=== PATIENT | female | born 1970 | race Caucasian/White ===

== ENCOUNTER 2024-11-19 19:30 | Inpatient (IN) | payer MEDICAID ==
[~2024-11-19] VITALS: Ht 154.9 cm; Wt 144.1 kg
[~2024-11-19 19:30] MED LIST: AEC81 PO; ALBU18HF7 IH; ALBU2.5V2 NEB; ATOR40TA69 PO; AZEL137S11 NS; BACI30OI6 TP; BENZ200C53 PO; CELE-146 PO; DOXY-466 PO; ERGO800010 PO; FAMO40TA7 PO; FLUT16H NS; FURO40TA5 PO; GABA-529 PO; GUAI600T50 PO; HYD50 PO; HYDR-4060 PO; HYDR25SU11 PR; INSU100I15 SQ; INSU3INS3 SQ; IPRA4AER IH; LISI2.5T13 PO; LORA10TA7 PO; METF-910 PO; METH4TAB3 PO; METO25 PO; MONT-46 PO; TERB250T89 PO; UMEC1DIS IH; ZOLP5TAB16 PO
--- NOTE | 2024-11-19 19:57 | ERN ---
ED Note History of Present Illness Stated Complaint: GBW, FATIGUE SUDDEN ONSET Chief Complaint: Weakness Time Seen by MD: 19:44 Dictation: IS A 54-YEAR-OLD FEMALE THAT IS STATES SHE WAS JUST DISCHARGED FROM [facility] YESTERDAY AFTER BEING HERE FOR SEVERAL DAYS. SHE STATES SHE HAD HAD A GOOD DAY YESTERDAY TODAY SHE GOT UP AND THIS AFTERNOON SHE WAS GOING INTO HAVE DINNER WITH HER FAMILY AT A [facility] [employer]. SHE STATES WHILE SHE WAS WALKING IN SHE FELT A SUDDEN SENSATION OF PRESSURE AROUND HER CHEST AND NECK. SHE SAID SHE BECAME DIAPHORETIC SHE SAID IT LASTED 20-30 MINUTES. SHE SAID THAT IT DID NOT RADIATE SHE STATES THAT THERE WAS EMS THERE HAVING DINNER AND THEY CHECKED ON HER AND DECIDED THAT IT WAS BEST TO BRING HER TO THE HOSPITAL. SHE STATES IT THIS TIME SHE IS NOT HAVING ANY CHEST PAIN PRESSURE OR SHORTNESS A BREATH. SHE DOES NOT HAVE A HISTORY OF STAGE 4 KIDNEY DISEASE HYPERTENSION DIABETES AND TOBACCO ABUSE. Allergies: Coded Allergies: cephalexin (Unverified Allergy, Unknown, 11/13/24) Home Meds Active Scripts Insulin Glargine,Hum.rec.anlog (Lantus Solostar) 100 Unit/Ml (3 Ml) Insuln.pen, 40 UNIT SQ HS for 30 Days, #5 ML 1 Refill Prov:DIANA SHOOK MD 11/18/24 Furosemide (Furosemide) 40 Mg Tablet, 1 TAB PO BID for 30 Days, #60 TAB 1 Refill Prov:DIANA SHOOK MD 11/17/24 Ipratropium/Albuterol Sulfate (Combivent Respimat Inhal [place]) 20 Mcg-100 Mcg/Actuation Aer.w.adap, 2 PUFF IH TID PRN for SHORTNESS OF BREATH/WHEEZING, #4 GM 1 Refill Prov:DIANA SHOOK MD 11/17/24 Methylprednisolone (Medrol) 4 Mg Tab.ds.pk, 1 TAB PO AD for 6 Days, #21 TAB 0 Refills 6 on day 1 then reduce by one tablet daily until gone Prov:DIANA SHOOK MD 11/17/24 Lisinopril (Lisinopril) 2.5 Mg Tablet, 1 TAB PO DAILY for 30 Days, #30 TAB 1 Refill Prov:DIANA SHOOK MD 11/17/24 Doxycycline Monohydrate (Doxycycline Monohydrate) 100 Mg Capsule, 1 CAP PO BID for 7 Days, #14 CAP 0 Refills Prov:DIANA SHOOK MD 11/17/24 Montelukast Sodium (Singulair 10Mg) 10 Mg Tab, 10 MG PO DAILY for 30 Days, #30 TAB 1 Refill Prov:DIANA SHOOK MD 11/17/24 Metoprolol Tartrate (Lopressor) 25 Mg Tab, 12.5 MG PO BID for 30 Days, #30 TAB 1 Refill Prov:DIANA SHOOK MD 11/17/24 Hydrocortisone Acetate (Anucort-Hc) 25 Mg Supp.rect, 1 SUPP NE DAILY PRN for HEMORRHOIDS for 7 Days, #7 EA 1 Refill Prov:DIANA SHOOK MD 11/17/24 Bacitracin (Bacitracin) 500 Unit/Gram Oint...g., 0 GM TP BID for 14 Days, #1 G 1 Refill Apply topical to affected area Prov:DIANA SHOOK MD 11/17/24 Atorvastatin Calcium (LIPITOR) 40 Mg Tablet, 40 MG PO HS for 30 Days, #30 TAB 1 Refill Prov:DIANA SHOOK MD 11/17/24 Aspirin (ASPIRIN 81 MG ECTAB) 81 Mg Ectab, 81 MG PO DAILY for 30 Days, #30 TAB.EC 1 Refill Prov:DIANA SHOOK MD 11/17/24 Reported Medications Fluticasone Propionate (Flonase Nasal [place]) 50 Mcg/Actuation [place], 2 SPRAY NS DAILY, #16 GM 0 Refills 11/14/24 Hydroxyzine HCl (Atarax) 50 Mg Tab, 1 CAP PO TID for anxiety for 30 Days, #90 CAP 0 Refills 11/14/24 Famotidine (Famotidine) 40 Mg Tablet, 1 TAB PO DAILY for 30 Days, #30 TAB 0 Refills 11/14/24 Albuterol Sulfate (Albuterol Sulfate) 2.5 Mg/3 Ml (0.083 %) Vial.neb, 1 VIAL NEB Q4HPRN PRN for wheezing, #150 ML 0 Refills 11/14/24 Zolpidem Tartrate (Zolpidem Tartrate) 5 Mg Tablet, 1 TAB PO HSPRN PRN for sleep for 30 Days, #30 TAB 0 Refills 11/14/24 Ergocalciferol (Vitamin D2) (Ergocalciferol) 200 Mcg/Ml (8000 Unit/Ml) Drops, 1.25 MG PO QWEEK, DROP 11/14/24 Terbinafine HCl (Terbinafine HCl) 250 Mg Tablet, 1 TAB PO DAILY for 30 Days, #30 TAB 0 Refills 11/14/24 Umeclidinium Brm/Vilanterol Tr (Anoro Ellipta 62.5-25 Mcg INH) 62.5 Mcg-25 Mcg/Actuation Disk.w.dev, 1 PUFF IH DAILY for 30 Days, #1 EACH 0 Refills 11/14/24 Insulin Lispro (Humalog) 100 Unit/Ml Insuln.pen, 0 SQ TID PRN for SLIDING SCALE COVERAGE, SYRINGE 11/14/24 Gabapentin (Gabapentin) 100 Mg Capsule, 1 CAP PO TID for 30 Days, #90 CAP 0 Refills 11/14/24 Atorvastatin Calcium (LIPITOR) 40 Mg Tablet, 1 TAB PO DAILY for 30 Days, #30 TAB 0 Refills 11/14/24 Metformin HCl (Metformin HCl ER) 500 Mg Tab.er.24h, 2 TAB PO DAILY for 30 Days, #120 TAB 0 Refills 11/14/24 Loratadine (Loratadine) 10 Mg Tablet, 1 TAB PO DAILY for allergy symptoms for 30 Days, #30 TAB 0 Refills 11/14/24 Albuterol Sulfate (Ventolin Hfa) 90 Mcg Hfa.aer.ad, 2 PUFF IH E0ALYPV PRN for wheezing for 30 Days, #18 GM 0 Refills 11/14/24 Hydrocodone/Acetaminophen (Hydrocodon-Acetaminophen 5-325) 5 Mg-325 Mg Tablet, 0.5 EACH PO HSPRN PRN for PAIN LEVEL 6 TO 10, TAB 11/14/24 Guaifenesin (Mucinex) 600 Mg Tablet.er, 1200 MG PO BID, TAB 11/14/24 Benzonatate (Benzonatate) 200 Mg Capsule, 2 CAP PO TIDP PRN for cough for 7 Days, #21 CAP 0 Refills 11/14/24 Azelastine HCl (Azelastine HCl) 137 Mcg (0.1 %) [place].pump, 1 SPRAY NS BID for 30 Days, #30 ML 0 Refills 11/14/24 Celecoxib (Celecoxib) 100 Mg Capsule, 1 CAP PO BID for 10 Days, #20 CAP 0 Refills 11/14/24 Discontinued Reported Medications Insulin Glargine,Hum.rec.anlog (Lantus Solostar) 100 Unit/Ml (3 Ml) Insuln.pen, 20 UNIT SQ HS for 30 Days, ML 0 Refills 11/14/24 Lisinopril (Lisinopril) 10 Mg Tablet, 1 TAB PO DAILY for 30 Days, #30 TAB 0 Refills 11/14/24 Spironolactone (Aldactone) 25 Mg Tablet, 1 TAB PO DAILY for 30 Days, #30 TAB 0 Refills 11/14/24 Prednisone (Prednisone) 20 Mg Tablet, 40 MG PO DAILY, TAB 11/14/24 Past Medical History Past Medical History: COPD, Diabetes-Type II, High Cholesterol, Hypertension Additional Past Medical Hx: SLEEP APNEA, MORBID OBESITY Surgical History: Other, Surgical History Other: LEFT SHOULDER Social History: Smokers History: Not Applicable RN Note Reviewed/Agreed w/PFSH: Yes Review of System Dictation CONSTITUTIONAL: NEGATIVE EXCEPT FOR HPI DIAPHORESIS HEAD/FACE: NEGATIVE EXCEPT FOR HPI EENT: NEGATIVE EXCEPT FOR HPI RESPIRATORY: NEGATIVE EXCEPT FOR HPI CHEST PRESSURE GASTROINTESTINAL/ABDOMINAL: NEGATIVE EXCEPT FOR HPI GENITOURINARY: NEGATIVE EXCEPT FOR HPI MUSCULOSKELETAL: NEGATIVE EXCEPT FOR HPI INTEGUMENTARY: NEGATIVE EXCEPT FOR HPI NEUROLOGICAL/PSYCH: NEGATIVE EXCEPT FOR HPI HEMATOLOGIC/LYMPHATIC: NEGATIVE EXCEPT FOR HPI ALL SYSTEMS NEGATIVE, EXCEPT NOTED ABOVE. 13 POINT REVIEW OF SYSTEMS ASSESSED AND ALL NEGATIVE EXCEPT FOR ABOVE. Initial Vital Sign VS Vital Signs Date Time Temp Pulse Resp B/P (MAP) Pulse Ox O2 Delivery O2 Flow Rate FiO2 11/19/24 19:31 97.9 103 17 125/77 98 Nonrebreathing Mask 10.0 11/19/24 20:10 21 Physical Exam Dictation VITAL SIGNS REVIEWED GENERAL APPEARANCE: ALERT, ORIENTED X 3, NO ACUTE DISTRESS, WELL DEVELOPED, NOURISHED. MORBID OBESITY NO PAIN HEAD AND FACE: NON-TRAUMATIC. EYES: PERRL, PINK CONJUNCTIVAS, EYELID NO TRAUMA, ANTERIOR CHAMBER WITH ARCUS SENILIS. EARS: PINNAS INTACT AND NO SIGNS OF TRAUMA OR ERYTHEMA EAR CANALS CLEAR AND NO DISCHARGE TM NO ERYTHEMA NOSE: NO DISCHARGE, NO BLEEDING. OROPHARYNX: MOUTH NORMAL, TONGUE PINK, PHARYNX CLEAR,NO ERYTHEMA, TONSILS NO EXUDATES, NO ABSCESSES NOTED, MUCOUS MEMBRANE MOIST NECK: SUPPLE, NON-TENDER, NO THYROMEGALY, NO MASSES, NO JVD, NO BRUITS BREAST:DEFERRED CHEST:NO TENDERNESS, NO CREPITUS, NO PARADOXICAL MOVEMENT, NO RETRACTIONS LUNGS:CLEAR, WELL-VENTILATED, SYMMETRIC, NO RALES, NO WHEEZING, NO RHONCHI, NO STRIDOR, GOOD BREATH SOUNDS BILATERALLY NO TACHYPNEA NO RETRACTIONS BILATERAL BREATH SOUNDS CLEAR, DIMINISHED IN THE BASES HEART: REGULAR RATE, REGULAR RHYTHM, NO MURMUR, NO GALLOPS VASCULAR: NO PERIPHERAL EDEMA, ABDOMEN: SOFT, POSITIVE BOWEL SOUNDS, NONDISTENDED, NO GUARDING, NONTENDER, NO REBOUND, NO MASSES NO HEPATOMEGALY, NO SPLENOMEGALY, NO BREWSTER'S SIGN, NO HERNIAS. RECTAL: DEFERRED GENITAL: DEFERRED NEUROLOGICAL: NORMAL SPEECH, MOTOR FUNCTION INTACT, SENSORY FUNCTION INTACT MUSCULOSKELETAL: NECK NONTENDER, FULL RANGE OF MOTION, BACK NONTENDER, FULL RANGE OF MOTION, EXTREMITIES: NONTENDER, FULL RANGE OF MOTION SKIN: COLOR PINK, DRY, NO TURGOR, NO RASH, NO LACERATIONS, NO ABRASIONS, NO CONTUSIONS. LYMPHATIC: DEFERRED Results (Laboratory/Radiology) Laboratory/Radiology Laboratory Tests Test 11/19/24 20:08 White Blood Count 14.6 K/uL (4.8-10.8) H Red Blood Count 5.53 MIL/uL (4.00-5.50) H Hemoglobin 17.6 g/dL (12.0-16.0) H Hematocrit 52.0 % (36-48) H Mean Corpuscular Volume 94.0 fL (79-99) Mean Corpuscular Hemoglobin 31.8 pg (27.0-33.0) Mean Corpuscular Hemoglobin Concent 33.8 g/dL (32.0-36.0) Red Cell Distribution Width 13.2 % (11.0-15.5) Platelet Count 328 K/uL (130-400) Mean Platelet Volume 10.3 fL (7.5-10.5) Immature Granulocyte % (Auto) 0.5 % (0-1) Neutrophils (%) (Auto) 79.1 % (40.0-77.0) H Lymphocytes (%) (Auto) 13.4 % (21.0-51.0) L Monocytes (%) (Auto) 6.4 % (3.0-13.0) Eosinophils (%) (Auto) 0.3 % (0.0-8.0) Basophils (%) (Auto) 0.3 % (0.0-5.0) Neutrophils # (Auto) 11.5 K/uL (1.8-7.7) H Lymphocytes # (Auto) 2.0 K/uL (1.0-4.8) Monocytes # (Auto) 0.9 K/uL (0.1-1.0) Eosinophils # (Auto) 0.04 K/uL (0.00-0.70) Basophils # (Auto) 0.04 K/uL (0.00-0.20) Absolute Immature Granulocyte (auto 0.07 K/uL (0-1) Nucleated Red Blood Cells 0.0 % (0.0-0.19) Sodium Level 139 mmol/L (136-145) Potassium Level 4.4 mmol/L (3.5-5.1) Chloride Level 101 mmol/L (101-111) Carbon Dioxide Level 27 mmol/L (21-32) Blood Urea Nitrogen 43 mg/dL (7-18) H Creatinine 1.5 mg/dL (0.5-1.0) H Glomerular Filtration Rate Calc 41 mL/min (>90) Random Glucose 246 mg/dL (70-105) H Lactic Acid Level 3.0 mmol/L (0.8-2.5) H Total Calcium 8.6 mg/dL (8.5-10.1) Magnesium Level 1.30 mg/dL (1.80-2.40) L Troponin I High Sensitivity 4 ng/L (4-50) B-Type Natriuretic Peptide 6 pg/mL (0-100) 2035/LACTIC ACID 3.0. PATIENT'S BLOOD PRESSURE IS 93/60. FLUID RESUSCITATION AND LEVAQUIN WE WILL BE INITIATED. CHEST X-RAY REVEALS RESIDUAL PNEUMONIA BILATERAL LOWER LOBES. ANTICIPATE ADMISSION IN THE HOSPITAL. PATIENT WILL BE MONITORED CLOSELY FOR HEMODYNAMIC STABILITY AND O2 SATURATIONS. SEX: F AGE: 54 LOCATION: [facility] ORDER 53 STATUS: REG ER REPORT#: [id number] SERVICE 50 REASON: CHEST PAIN/SOB ORDERING PHYSICIAN: LESLEY MAY NP PROCEDURE: CXR1VW - CHEST 1VW EXAM: CR Chest, 2 View. CLINICAL HISTORY: CHEST PAIN/SOB COMPARISON: None provided. FINDINGS: LUNGS: Mild bibasilar airspace disease may reflect atelectasis. PLEURAL SPACES: No pleural effusion or pneumothorax. MEDIASTINUM: The cardiomediastinal silhouette is within normal limits. BONES: No aggressive appearing osseous lesion seen. IMPRESSION: No acute cardiopulmonary pathology is evident. /[facility] Labs Reviewed?: Yes EKG Comment: TACHYCARDIA/HEART RATE 102/AXIS NORMAL/NONSPECIFIC CHRONIC CHANGES ED Course ED Course Orders Procedure Category Date Status Time B-Type Natriuretic LAB 11/19/24 Complete Peptide 19:51 Cbc With Differential LAB 11/19/24 Complete 19:51 Chest 1vw RAD 11/19/24 Resulted 19:51 12 Lead Ekg Tracing- EKG 11/19/24 Logged Technical 19:51 Magnesium LAB 11/19/24 Complete 19:51 Troponin I High LAB 11/19/24 Complete Sensitivity 19:51 Basic Metabolic Panel LAB 11/19/24 Complete 19:51 Aspirin 325mg Tab PHA 11/19/24 In Process (Aspirin 325mg Tab) 20:00 Blood Cult LEON 11/19/24 In Process 20:25 Lactic Acid LAB 11/19/24 Complete 20:25 Urinalysis Profile LAB 11/19/24 Logged 20:25 0.9%Nacl 1000ml (Ns PHA 11/19/24 In Process 1000ml) 20:30 Levofloxacin 750 PHA 11/19/24 Complete Mg/D5w 150 Ml 21:00 0.9%Nacl 1000ml (Ns PHA 11/19/24 Complete 1000ml) 21:00 Magnesium 2gm Premix PHA 11/19/24 Complete 50ml (Magnesium 2gm 21:30 Albuterol 0.083% PHA 11/19/24 Complete 2.5mg/3ml (Proventil 21:30 Edm Admit Bridge Order ADM 11/19/24 Transmitted 21:51 Current Medications Medications (Trade) Dose Ordered Sig/Brodie Route PRN Reason Start Time Stop Time Status Last Admin Dose Admin Albuterol Sulfate (Proventil 0.083% 2.5mg/3ml) 2.5MG ONCE ONCE IH 11/19/24 21:30 11/19/24 21:31 DC 11/19/24 21:51 Aspirin (Aspirin 325mg Tab) 325 mg ONCE PO 11/19/24 20:00 11/19/24 23:59 11/19/24 20:16 Levofloxacin/ Dextrose (LEvaquIN 750 MG/ D5W 150 ML) 750 mg ONCE ONCE IV 11/19/24 21:00 11/19/24 21:01 DC 11/19/24 21:34 Magnesium Sulfate (Magnesium 2gm Premix 50ml) 2 g ONCE ONCE IV 11/19/24 21:30 11/19/24 21:31 DC 11/19/24 21:35 Sodium Chloride 1,000 ml @ 0 mls/hr ONCE IV 11/19/24 20:30 11/20/24 20:29 11/19/24 21:33 Sodium Chloride 1,000 ml @ 0 mls/hr ONCE ONCE IV 11/19/24 21:00 11/19/24 21:01 DC 11/19/24 21:34 Vital Signs Date Time Temp Pulse Resp B/P (MAP) Pulse Ox O2 Delivery O2 Flow Rate FiO2 11/19/24 21:43 99 18 109/55 97 Room Air* 0 21 11/19/24 20:10 98.4 103 18 91/52 97 Room Air* 0 21 11/19/24 19:31 97.9 103 17 125/77 98 Nonrebreathing Mask 10.0 2115/PATIENT WILL BE ADMITTED TO THE HOSPITAL FOR SEVERE SEPSIS/MORENITA/HYPOMAGNESEMIA/UNCONTROLLED DIABETES PATIENT HAS A BLOOD PRESSURE OF 101/62 AT THE PRESENT TIME WITH HEART RATE 101.2150/ Spoke [id number]/spoke with Alannah DIETRICH hospitalist reviewed chest x-ray EKG labs troponin and interventions for sepsis and MORENITA. She agreed to admit patient. HEART Score Response (Comments) Value EKG: Repolarization changes 1 Age: 45-65yrs (+1) 1 Initial Troponin: Normal limit (0) 0 Total 2 CHADS-VASc Score Response (Comments) Value Sex: Female (+1) 1 Hypertension Hx: Yes (+1) 1 Diabetes Hx: Yes (+1) 1 Total 3 Medical Decision Making MDM MDM: DIFFERENTIAL DIAGNOSIS: ACS/AMI/ELECTROLYTE IMBALANCE/DEHYDRATION/SEPSIS/PNEUMONIA/BRONCHITIS/SYNCOPE RATIONALE: TESTS CONSIDERED AND ORDERED SECONDARY TO SHARED DECISION MAKING INCLUDE: LABS, ECG AND RADIOLOGY PREVIOUS OUTSIDE RECORDS REVIEWED: OLD ER VISITS. RISK OF COMPLICATION AND/OR MORBIDITY OR MORTALITY OF PATIENT MANAGEMENT: NONE MEDICATIONS-PER MEDICATION RECONCILIATION NEED FOR HOSPITALIZATION: PATIENT DOES MEET CRITERIA FOR HOSPITALIZATION. PATIENT WILL BE READMITTED TO THE HOSPITAL FOR MORENITA/SEVERE SEPSIS/HYPOMAGNESEMIA AND UNCONTROLLED DIABETES NEED FOR EMERGENCY MAJOR/MINOR SURGERY: NO THERE ARE NO SOCIAL CONCERNS WITH THIS PATIENT. PRESCRIPTION DRUG MANAGEMENT PRESCRIPTIONS WILL INCLUDE SYMPTOMATIC CARE PATIENT'S PRIOR EXTERNAL MEDICAL RECORDS FROM OTHER ER VISITS WERE REVIEWED BY ME INDICATED. PRIOR TESTING AND RESULTS FROM PREVIOUS VISITS WERE REVIEWED. PRIOR TESTS WERE TAKEN INTO ACCOUNT WITH MEDICAL DECISION MAKING AND RESOURCE UTILIZATION, INDEPENDENT HISTORIAN/HISTORIANS WERE USED TO OBTAIN COMPLETE MEDICAL HISTORY. I INDEPENDENTLY INTERPRETED THE TEST THAT WERE PERFORMED, RESULTS WERE REVIEWED BY ME AND CONSIDERED FINDINGS ON RADIOLOGY IF ORDERED. MEDICAL MANAGEMENT AND EXAMINATION INTERPRETATION DISCUSSIONS WERE HAD BY ME WITH OTHER QUALIFIED HEALTHCARE PROFESSIONALS INDICATED FOR THE PATIENT'S CARE. DX & DISP Disposition: Inpatient Decision to Admit Time: 21:19 Departure Impression: Primary Impression: Acute bacterial bronchitis Additional Impressions: [id number] kidney injury, Hypomagnesemia, Uncontrolled diabetes mellitus, Sepsis associated hypotension, Tobacco abuse Condition: Stable Referrals: SELF,REFERRAL (PCP) I have reviewed the case, and I agree with, Diagnosis and Plan LESLEY MAY NP Nov 19, 2024 19:57
[2024-11-19] MEDS: ASPIRIN 325MG TAB PO SCH (20:16)
[2024-11-19 20:39] LABS: IMMATURE GRANULOCYTE ABSOLUTE 0.07 K/uL (0-1); NUCLEATED RED BLOOD CELLS 0.0 % (0.0-0.19); PLATELET COUNT (AUTO) 328 K/uL (130-400); RED BLOOD CELL COUNT(AUTO) 5.53 MIL/uL (4.00-5.50); RED CELL DISTRIBUTION WIDTH 13.2 % (11.0-15.5); WHITE BLOOD COUNT (AUTO) 14.6 K/uL (4.8-10.8)
[2024-11-19 20:47] LABS: CREATININE 1.5 mg/dL (0.5-1.0); GLOMERULAR FILTR. RATE CALC 41.0 mL/min (>90); GLUCOSE,RANDOM 246.0 mg/dL (70-105); SODIUM SERUM 139.0 mmol/L (136-145); UREA NITROGEN, BLOOD 43.0 mg/dL (7-18)
--- NOTE | 2024-11-19 20:51 | HMCIMG ---
EXAM: CR Chest, 2 View. CLINICAL HISTORY: CHEST PAIN/SOB COMPARISON: None provided. FINDINGS: LUNGS: Mild bibasilar airspace disease may reflect atelectasis. PLEURAL SPACES: No pleural effusion or pneumothorax. MEDIASTINUM: The cardiomediastinal silhouette is within normal limits. BONES: No aggressive appearing osseous lesion seen. IMPRESSION: No acute cardiopulmonary pathology is evident. /[place]
[2024-11-19] MEDS: 0.9%NACL 1000ML 1,000 ML IV SCH (21:33)
[2024-11-19] MEDS: 0.9%NACL 1000ML 1,000 ML IV ONE (21:34)
[2024-11-19] MEDS: MAGNESIUM 2GM PREMIX 50ML IV ONE (21:35)
[2024-11-19 21:51] VITALS: PULSE 99; RESP 20
[2024-11-19] MEDS: ALBUTEROL 0.083% 2.5 MG/3 ML INH IH ONE (21:51)
--- NOTE | 2024-11-19 22:53 | HP ---
[facility] Date of Service: Nov 19, 2024 Time of Service: 22:32 PCP:Self referral HISTORY OF PRESENT ILLNESS: This is a 54 year old female with past medical history of diabetes,hypertension,hyperlipidemia,morbid obesity,obstructive sleep apnea p ending Cpap,morbid obesity and COPD who was brought per EMS for complaints of generalized body weakness,dizziness and sudden onset of chest tightness that radiates to neck associated with diaphoresis and shortness of breath.Patient reports she was admitted here in this facility for sepsis,pneumonia and ESRD on 11/13/2024 and was discharged home yesterday.Patient reports she was doing fine and today and she had Barbacua and tortilla for breakfast and lunch and she went to a restaurant for a family dinner and from car to the restaurant she walked and suddenly she felt chest tightness around her chest and radiates to her neck ,initially she thought she was having an anxiety and at that time there was an EMS at the scene who helped and checked her BP and took an ECG and she was told her BP was low and K was low and decided to bring her to the ED for evaluation.Upon arrival to the ED patient V/S T 97.9,HR 103 ,BP 125/77 Sat 98% NRB 10 L. labs: WBC 14, with negative left shift of neutrophils 79, hemoglobin 17, hematocrit 52, platelet count 328. BUN 43, creatinine 1.5, GFR 41, glucose 246, lactic acid three magnesium 1.3. ECG result revealed no acute cardiopulmonary pathology. ECG result revealed sinus tach 102 low voltage precordial leads. Patient reports upon arrival to the ED she felt better. On examination,patient is awake,alert and oriented in no apparent distress,appears comfortable.Patient states she feels much better now.Patient denies fever,chills,chest pain,palpitation,nausea,vomiting and abdominal pain. While in the ER patient received 2.5 albuterol neb treatment, magnesium 2 g IV, 1 L NS bolus, Levaquin 750 mg IV. We will admit patient for further medical management. REVIEW OF SYSTEMS CONSTITUTIONAL: Denies fevers, chills, or night sweats. No unintentional weight loss reported. NEUROLOGICAL: Denies headache, amaurosis fugax, motor weakness, sensory deficit, vertigo/spinning sensation, gait abnormalities, or tremors. ENT: No hearing loss, otalgia, otorrhea, rhinitis, rhinorrhea, hoarseness, or sore throat. CARDIOVASCULAR: Denies any exertional angina, dyspnea on exertion, orthopnea, paroxysmal nocturnal dyspnea, palpitations, life-threatening arrhythmias, claudication. PULMONARY: Denies any shortness of breath, cough, phlegm/sputum, hemoptysis, pleuritic chest pain. SLEEP: Denies morning headaches, daytime somnolence or napping. Denies difficulty falling asleep, staying asleep, waking from sleep. Denies knowledge of snoring. GASTROINTESTINAL: Denies any type of dysphagia to either liquids or solids. Denies nausea, vomiting, pyrosis, early satiety, abdominal pain, diarrhea, constipation, or changes in stool consistency or caliber. Denies coffee-ground emesis, hematemesis, hematochezia, or melanotic stools. GENITOURINARY: Denies frequency, urgency, nocturia, hematuria or incontinence (Storage/Irritative symptoms.) Low urinary stream, straining to void, urinary intermittency or hesitancy, splitting of the voiding stream, terminal dribbling. ENDOCRINOLOGIC: Denies polyuria, polydipsia, polyphagia or heat/cold intolerances. HEMATOLOGIC: Denies thrombophilia/previous clots, or coagulopathy/bleeding disorders. ONCOLOGIC: Denies personal history of malignancy. DERMATOLOGIC: Denies rashes or pruritus. PSYCHIATRIC: Denies any suicidal or homicidal ideation. Denies hallucinations. PAST MEDICAL HISTORY: [ diabetes,hypertension,hyperlipidemia,morbid obesity,obstructive sleep apnea pending Cpap,morbid obesity and COPD ] PAST SURGICAL HISTORY: [ x1, cholecystectomy and left shoulder surgery ] PAST SOCIAL HISTORY: [ Patient is a resident from [place]. Patient admits to smoking cigarette 1.5 pack per day. Denies alcohol and recreational drug use ] FAMILY HISTORY: [ Noncontributory ] Coded Allergies: cephalexin (Unverified Allergy, Unknown, 11/13/24) PHYSICAL EXAM GENERAL APPEARANCE: The patient is awake, alert, and oriented, in no acute car diopulmonary distress. NEUROLOGICAL: Cranial nerves II-XII grossly intact. Motor is 5/5 in bilateral upper and lower extremities proximal to distal. No sensory deficits. HEENT: Face is symmetric. Pupils are equal and reactive. Extraocular movements are intact. NECK: Supple. No JVD. No thyromegaly. No submental, submandibular, pre- /postauricular, occipital or supraclavicular lymphadenopathy. CHEST: Normal chest expansion. No Telemetry. LUNGS: Absence of any rales, rhonchi or any wheezing. CARDIOVASCULAR: Regular. S1 and S2 normal. No appreciable rubs, murmurs or gallops. ABDOMEN: Soft, nontender, and nondistended. There is no rebound, voluntary guarding, or rigidity. : Deferred. No Guerrero. EXTREMITIES: Non-edematous and not cyanotic. No clubbing. Good capillary refill. SKIN: No skin breakdown. Vital Sign (Last 24 Hours) 11/19/24 11/19/24 11/19/24 20:10 21:43 21:51 Temp 98.4 Pulse 99 Resp 20 B/P (MAP) 109/55 Pulse Ox 97 O2 Delivery Room Air* O2 Flow Rate 0 FiO2 21 LABS: Laboratory: Test 11/19/24 20:08 Range/Units White Blood Count 14.6 H 4.8-10.8 K/uL Red Blood Count 5.53 H 4.00-5.50 MIL/uL Hemoglobin 17.6 H 12.0-16.0 g/dL Hematocrit 52.0 H 36-48 % Mean Corpuscular Volume 94.0 79-99 fL Mean Corpuscular Hemoglobin 31.8 27.0-33.0 pg Mean Corpuscular Hemoglobin Concent 33.8 32.0-36.0 g/dL Red Cell Distribution Width 13.2 11.0-15.5 % Platelet Count 328 130-400 K/uL Mean Platelet Volume 10.3 7.5-10.5 fL Immature Granulocyte % (Auto) 0.5 0-1 % Neutrophils (%) (Auto) 79.1 H 40.0-77.0 % Lymphocytes (%) (Auto) 13.4 L 21.0-51.0 % Monocytes (%) (Auto) 6.4 3.0-13.0 % Eosinophils (%) (Auto) 0.3 0.0-8.0 % Basophils (%) (Auto) 0.3 0.0-5.0 % Neutrophils # (Auto) 11.5 H 1.8-7.7 K/uL Lymphocytes # (Auto) 2.0 1.0-4.8 K/uL Monocytes # (Auto) 0.9 0.1-1.0 K/uL Eosinophils # (Auto) 0.04 0.00-0.70 K/uL Basophils # (Auto) 0.04 0.00-0.20 K/uL Absolute Immature Granulocyte (auto 0.07 0-1 K/uL Nucleated Red Blood Cells 0.0 0.0-0.19 % Sodium Level 139 136-145 mmol/L Potassium Level 4.4 3.5-5.1 mmol/L Chloride Level 101 101-111 mmol/L Carbon Dioxide Level 27 21-32 mmol/L Blood Urea Nitrogen 43 H 7-18 mg/dL Creatinine 1.5 H 0.5-1.0 mg/dL Glomerular Filtration Rate Calc 41 >90 mL/min Random Glucose 246 H 70-105 mg/dL Lactic Acid Level 3.0 H 0.8-2.5 mmol/L Total Calcium 8.6 8.5-10.1 mg/dL Magnesium Level 1.30 L 1.80-2.40 mg/dL Troponin I High Sensitivity 4 4-50 ng/L B-Type Natriuretic Peptide 6 0-100 pg/mL Current Medications Medications (Trade) Dose Ordered Sig/Brodie Route PRN Reason Start Time Stop Time Status Last Admin Dose Admin Aspirin (Aspirin 325mg Tab) 325 mg ONCE PO 11/19/24 20:00 11/19/24 23:59 11/19/24 20:16 325 MG Sodium Chloride 1,000 ml @ 0 mls/hr ONCE IV 11/19/24 20:30 11/20/24 20:29 11/19/24 21:33 1,000 MLS/HR DIAGNOSTICS / RADIOLOGY: [ ] ASSESSMENT: Acute bacterial bronchitis POA Acute respiratory failure POA Chest pain r/o ACS POA Transient hypotension -improved POA Lactic acidosis POA Acute Kidney injury POA Hypomagnesemia POA Uncontrolled diabetes POA Hypertension POA Hyperlipidemia POA Chronic obstructive pulmonary disease POA Morbidly obese POA Obstructive sleep apnea no CPAP machine POA Dilated pulmonary trunk concerning for pulmonary artery hypertension per CT on 11/14/2024 POA PLAN: We will admit patient in medical telemetry We will start on heart healthy diet Patient received 1 L NS bolus in the ER We will start on aspirin 81 mg p.o. daily We will continue Levaquin 750 mg IV daily We will start on famotidine 20 mg p.o. daily for GI prophylaxis We will start on heparin 5000 subQ b.i.d. for DVT prophylaxis We will replace electrolytes as needed per protocol We will start on insulin sliding scale AC & HS with hypoglycemia protocol We will add prn medication for fever,pain,cough , nausea and vomiting We will reconcile home meds once medlist available We will trend troponin q.6 x3 We will seek pulmonology consultation We will request labs in am Further orders to follow depending on above results Case discussed with attending physician and came up with above treatment and plan of care. ADVANCED CARE PLANNING 1. Which of the following were discussed? Hospice Care - No Therapeutic options - Yes Advance Directives - No Other discussions - 2. Discussed with who? Patient 3. Voluntary nature of this service was explained to the patient? Yes 4. Amount of time spent - _22 min 5. Reviewed by Physician? (if this service was performed by NPP) Yes Patient seen and examined by me. Agree with note by POST ADOPTION COORDINATOR SEE ADDITIONAL ORDERS PER CHART DISCUSSED WITH NURSING STAFF EMERITA JORGE CLINICAL ADVISOR Nov 19, 2024 22:53
[2024-11-19] MEDS ORDERED: PoTASSium chl 10% ELIXIR 20MEQ 20 MEQ/15 ML UDCUP PO PRN (23:30)
[2024-11-19] MEDS ORDERED: GLUCAGON 1MG KIT 1 MG ML IM PRN (23:30)
[2024-11-19] MEDS ORDERED: guaiFENesin-DM 200/20MG 10ML PO PRN (23:30)
[2024-11-19] MEDS ORDERED: PoTASSium chloRIDE 20MEQ ER 20 MEQ ERTAB PO PRN (23:30)
[2024-11-19] MEDS ORDERED: DEXTROSE 50%-WATER 50 ML DISP.SYRIN IV PRN (23:30)
[2024-11-19] MEDS ORDERED: NITROGLYCERIN 0.4 MG SL TAB SL PRN (23:30)
[2024-11-19 23:55] VITALS: PULSE 92; RESP 20; O2SAT 95
[2024-11-20] VITALS (14 sets, daily range): BP systolic 95–128; BP diastolic 54–70; PULSE 84–94; RESP 18–20; TEMP 97.8–98.4; O2SAT 94–97
[2024-11-20 03:35] LABS: APPEARANCE,URINE CLEAR (CLEAR); GLUCOSE, URINE (UA) NEGATIVE (NEGATIVE); LEUKOCYTE ESTERASE ,URINE NEGATIVE Leu/uL (NEGATIVE); NITRATE,URINE NEGATIVE (NEGATIVE); OCCULT BLOOD,URINE NEGATIVE (NEGATIVE)
[2024-11-20 03:43] LABS: ADD UA MICROSCOPIC NO
[2024-11-20 05:37] LABS: IMMATURE GRANULOCYTE ABSOLUTE 0.08 K/uL (0-1); NUCLEATED RED BLOOD CELLS 0.0 % (0.0-0.19); PLATELET COUNT (AUTO) 284 K/uL (130-400); RED BLOOD CELL COUNT(AUTO) 5.07 MIL/uL (4.00-5.50); RED CELL DISTRIBUTION WIDTH 13.3 % (11.0-15.5); WHITE BLOOD COUNT (AUTO) 15.8 K/uL (4.8-10.8)
[2024-11-20 06:04] LABS: ASPARTATE AMINOTRANSFERASE 12.0 U/L (10-37); CREATININE 1.1 mg/dL (0.5-1.0); GLOMERULAR FILTR. RATE CALC 60.0 mL/min (>90); GLUCOSE,RANDOM 220.0 mg/dL (70-105); SODIUM SERUM 140.0 mmol/L (136-145); TOTAL PROTEIN, SERUM 6.4 g/dL (6.0-8.3); UREA NITROGEN, BLOOD 36.0 mg/dL (7-18)
--- NOTE | 2024-11-20 06:49 | EKG ---
[facility] Test Date: 2024-11-19 Test Time: 20:07:55 Pat Name: IAIN FLYNN Department: [facility] Room: 431 1 Gender: F General Technician: [id number] : 1970 Requested By: LESLEY MAY Order Number: [id number] Reading MD: Charles Hayden Measurements Intervals [place] Rate: 102 P: 57 DE: 120 QRS: 14 QRSD: 63 T: 49 QT: 327 QTc: 426 Interpretive Statements Sinus tachycardia Low voltage, precordial leads Compared to ECG 11/13/2024 20:09:48 Right-axis deviation no longer present Myocardial infarct finding no longer present Electronically Signed On 11-20-2024 10:56:32 CDT by Charles Hayden Please click the below link to view image of tracing.
[2024-11-20] MEDS: FAMOTIDINE 20MG TAB PO SCH (08:54)
[2024-11-20] MEDS: ASPIRIN 81 MG EC TAB PO SCH (08:55)
--- NOTE | 2024-11-20 10:50 | PN ---
[facility] PROGRESS NOTE Date of Service: Nov 20, 2024 Time of Service: 10:48 SUBJECTIVE: 11/20 patient is seen and examined at bedside, case discussed with the RN, no acute events overnight, hemodynamically stable, afebrile, saturating normal on room air. Patient admits dry nonproductive cough, she feels weak. No chest pain, shortness shortness for breath, no nausea, no vomiting. CBC shows a WBC of 50.8, hemoglobin 16.1, hematocrit 48.6. The patient recently discharged from the hospital on Medrol Dosepak. We will continue broad-spectrum antibiotics for additional 24 hours, pulmonary consultation requested, follow input recommendation, anticipate discharge home in the next 24 hours. REVIEW OF SYSTEMS CONSTITUTIONAL: Denies fevers, chills, or night sweats. No unintentional weight loss reported. NEUROLOGICAL: Denies headache, amaurosis fugax, motor weakness, sensory deficit, vertigo/spinning sensation, gait abnormalities, or tremors. ENT: No hearing loss, otalgia, otorrhea, rhinitis, rhinorrhea, hoarseness, or sore throat. CARDIOVASCULAR: Denies any exertional angina, dyspnea on exertion, orthopnea, paroxysmal nocturnal dyspnea, palpitations, life-threatening arrhythmias, claudication. PULMONARY: Denies any shortness of breath, cough, phlegm/sputum, hemoptysis, pleuritic chest pain. SLEEP: Denies morning headaches, daytime somnolence or napping. Denies difficulty falling asleep, staying asleep, waking from sleep. Denies knowledge of snoring. GASTROINTESTINAL: Denies any type of dysphagia to either liquids or solids. Denies nausea, vomiting, pyrosis, early satiety, abdominal pain, diarrhea, constipation, or changes in stool consistency or caliber. Denies coffee-ground emesis, hematemesis, hematochezia, or melanotic stools. GENITOURINARY: Denies frequency, urgency, nocturia, hematuria or incontinence (Storage/Irritative symptoms.) Low urinary stream, straining to void, urinary intermittency or hesitancy, splitting of the voiding stream, terminal dribbling. ENDOCRINOLOGIC: Denies polyuria, polydipsia, polyphagia or heat/cold intolerances. HEMATOLOGIC: Denies thrombophilia/previous clots, or coagulopathy/bleeding disorders. ONCOLOGIC: Denies personal history of malignancy. DERMATOLOGIC: Denies rashes or pruritus. PSYCHIATRIC: Denies any suicidal or homicidal ideation. Denies hallucinations. PHYSICAL EXAM GENERAL APPEARANCE: The patient is awake, alert, and oriented, in no acute cardiopulmonary distress. NEUROLOGICAL: Cranial nerves II-XII grossly intact. Motor is 5/5 in bilateral upper and lower extremities proximal to distal. No sensory deficits. HEENT: Face is symmetric. Pupils are equal and reactive. Extraocular movements are intact. NECK: Supple. No JVD. No thyromegaly. No submental, submandibular, pre- /postauricular, occipital or supraclavicular lymphadenopathy. CHEST: Normal chest expansion. No Telemetry. LUNGS: Absence of any rales, rhonchi or any wheezing. CARDIOVASCULAR: Regular. S1 and S2 normal. No appreciable rubs, murmurs or gallops. ABDOMEN: Soft, nontender, and nondistended. There is no rebound, voluntary guarding, or rigidity. : Deferred. No Guerrero. EXTREMITIES: Non-edematous and not cyanotic. No clubbing. Good capillary refill. SKIN: No skin breakdown. Vital Signs (last 8hr) Date Time Temp Pulse Resp B/P (MAP) Pulse Ox O2 Delivery O2 Flow Rate FiO2 11/20/24 08:00 98.4 91 18 114/59 94 Room Air 11/20/24 06:15 86 20 11/20/24 06:14 86 20 N/A Room Air 0.0 21 11/20/24 03:57 97.9 85 20 95/64 94 Room Air LABS: Laboratory: Test 11/20/24 05:29 11/20/24 05:05 11/20/24 02:35 11/19/24 20:08 Range/Units White Blood Count 15.8 H 4.8-10.8 K/uL Red Blood Count 5.07 4.00-5.50 MIL/uL Hemoglobin 16.1 H 12.0-16.0 g/dL Hematocrit 48.6 H 36-48 % Mean Corpuscular Volume 95.9 79-99 fL Mean Corpuscular Hemoglobin 31.8 27.0-33.0 pg Mean Corpuscular Hemoglobin Concent 33.1 32.0-36.0 g/dL Red Cell Distribution Width 13.3 11.0-15.5 % Platelet Count 284 130-400 K/uL Mean Platelet Volume 9.8 7.5-10.5 fL Immature Granulocyte % (Auto) 0.5 0-1 % Neutrophils (%) (Auto) 61.0 40.0-77.0 % Lymphocytes (%) (Auto) 28.7 21.0-51.0 % Monocytes (%) (Auto) 8.2 3.0-13.0 % Eosinophils (%) (Auto) 1.3 0.0-8.0 % Basophils (%) (Auto) 0.3 0.0-5.0 % Neutrophils # (Auto) 9.6 H 1.8-7.7 K/uL Lymphocytes # (Auto) 4.5 1.0-4.8 K/uL Monocytes # (Auto) 1.3 H 0.1-1.0 K/uL Eosinophils # (Auto) 0.20 0.00-0.70 K/uL Basophils # (Auto) 0.04 0.00-0.20 K/uL Absolute Immature Granulocyte (auto 0.08 0-1 K/uL Nucleated Red Blood Cells 0.0 0.0-0.19 % Sodium Level 140 136-145 mmol/L Potassium Level 4.0 3.5-5.1 mmol/L Chloride Level 102 101-111 mmol/L Carbon Dioxide Level 29 21-32 mmol/L Blood Urea Nitrogen 36 H 7-18 mg/dL Creatinine 1.1 H 0.5-1.0 mg/dL Glomerular Filtration Rate Calc 60 >90 mL/min Random Glucose 220 H 70-105 mg/dL Lactic Acid Level 1.7 0.8-2.5 mmol/L Total Calcium 8.2 L 8.5-10.1 mg/dL Magnesium Level 1.80 1.80-2.40 mg/dL Total Bilirubin 0.4 0.2-1.0 mg/dL Aspartate Amino Transf (AST/SGOT) 12 10-37 U/L Alanine Aminotransferase (ALT/SGPT) 39 12-78 U/L Alkaline Phosphatase 75 50-136 U/L Troponin I High Sensitivity 5 4-50 ng/L Total Protein 6.4 6.0-8.3 g/dL Albumin 2.9 L 3.5-5.0 g/dL Whole Blood Glucose 217 H 70-110 MG/DL Urine Color YELLOW YELLOW Urine Appearance CLEAR CLEAR Urine pH 6.0 5.0-8.0 Urine Specific [place] 1.025 1.001-1.031 Urine Protein NEGATIVE NEGATIVE mg/dL Urine Glucose (UA) NEGATIVE NEGATIVE mg/dL Urine Ketones NEGATIVE NEGATIVE mg/dL Urine Occult Blood NEGATIVE NEGATIVE Urine Nitrate NEGATIVE NEGATIVE Urine Bilirubin NEGATIVE NEGATIVE mg/dL Urine Urobilinogen 0.2 0.2-1.0 mg/dL Urine Leukocyte Esterase NEGATIVE NEGATIVE Kirk/uL B-Type Natriuretic Peptide 6 0-100 pg/mL Current Medications Medications (Trade) Dose Ordered Sig/Brodie Route PRN Reason Start Time Stop Time Status Last Admin Dose Admin Acetaminophen (TYLenol 325MG TAB) 650 mg Q4H PRN PO MILD PAIN (1-3) 11/19/24 23:30 12/19/24 23:29 11/20/24 08:55 650 MG Acetaminophen (TYLenol 325MG TAB) 650 mg Q6H PRN PO TEMPERATURE GREATER THAN 101.5 11/19/24 23:30 12/19/24 23:29 Albuterol (DUOneb) 1 udvial [id number] IH 11/20/24 02:00 12/20/24 01:59 11/20/24 06:14 1 UDVIAL Aspirin (Aspirin 325mg Tab) 325 mg ONCE PO 11/19/24 20:00 11/19/24 23:59 DC 11/19/24 20:16 325 MG Aspirin (Aspirin 81mg Ec Tab) 81 mg DAILY PO 11/20/24 09:00 12/20/24 08:59 11/20/24 08:55 81 MG Dextrose (D50w) 50 ml AD PRN IV HYPOGLYCEMIA PROTOCOL 11/19/24 23:30 12/19/24 23:29 Famotidine (Pepcid 20mg Tab) 20 mg DAILY PO 11/20/24 09:00 12/20/24 08:59 11/20/24 08:54 20 MG Glucagon (Glucagon 1mg Kit) 1 mg AD PRN IM HYPOGLYCEMIA PROTOCOL 11/19/24 23:30 12/19/24 23:29 Guaifenesin/ Dextromethorphan (RobiTUSSin DM 200/20MG 10ML) 10 ml Q4H PRN PO COUGH 11/19/24 23:30 12/19/24 23:29 Heparin Sodium (Porcine) (HEParin 5,000 UNIT VIAL) 5,000 unit Q12H SQ 11/19/24 23:30 12/19/24 23:29 11/20/24 00:11 5,000 UNIT Insulin Human Regular (humuLIN R 100 UNIT/ML 3ML) INSULIN SLIDING SCAL... ACHS SQ 11/20/24 07:30 12/20/24 07:29 11/20/24 06:32 3 UNIT Levofloxacin/ Dextrose 150 ml @ 100 mls/hr Q48H IV 11/21/24 22:00 12/01/24 21:59 Magnesium Sulfate 50 ml @ 0 mls/hr PROTOCOL PRN IV OTHER [SEE ORDER COMMENTS] 11/19/24 23:30 12/19/24 23:29 Nitroglycerin (Nitrostat) 0.4 mg PROTOCOL PRN SL CHEST PAIN 11/19/24 23:30 12/19/24 23:29 Ondansetron HCl (zoFRAN 4MG INJ) 4 mg Q6H PRN IV NAUSEA/VOMITING 11/19/24 23:30 12/19/24 23:29 Potassium Chloride 100 ml @ 100 mls/hr AD PRN IV POTASSIUM PROTOCOL 11/19/24 23:30 12/19/24 23:29 Potassium Chloride (K-Dur/Klor-Con 20meq) 20 meq AD PRN PO POTASSIUM PROTOCOL 11/19/24 23:30 12/19/24 23:29 Potassium Chloride (KCl 10% Elixir 20meq/15ml) 20 meq AD PRN PO POTASSIUM PROTOCOL 11/19/24 23:30 12/19/24 23:29 Sodium Chloride 1,000 ml @ 0 mls/hr ONCE IV 11/19/24 20:30 11/20/24 20:29 11/19/24 21:33 1,000 MLS/HR DIAGNOSTICS / RADIOLOGY: [ ] ASSESSMENT: Acute bacterial bronchitis POA Acute respiratory failure POA Chest pain r/o ACS POA Transient hypotension -improved POA Lactic acidosis POA Acute Kidney injury POA Hypomagnesemia POA Uncontrolled diabetes POA Hypertension POA Hyperlipidemia POA Chronic obstructive pulmonary disease POA Morbidly obese POA Obstructive sleep apnea no CPAP machine POA Dilated pulmonary trunk concerning for pulmonary artery hypertension per CT on 11/14/2024 POA PLAN: patient is seen and examined at bedside, case discussed with the RN, no acute events overnight, hemodynamically stable, afebrile, saturating normal on room air. Patient admits dry nonproductive cough, she feels weak. No chest pain, shortness shortness for breath, no nausea, no vomiting. CBC shows a WBC of 50.8, hemoglobin 16.1, hematocrit 48.6. The patient recently discharged from the hospital on Medrol Dosepak. We will continue broad-spectrum antibiotics for additional 24 hours, pulmonary consultation requested, follow input recommendat ion, anticipate discharge home in the next 24 hours. NEURO: Minimize central acting medications as possible. Fall Precautions. Well lighted room through the day and minimize interruptions through the night to prevent acute delirium. PULMONARY: Supplemental 02 as needed BiPAP as necessary, for respiratory distress Titrate Fio2 to keep Spo2 > or = 90% DuoNebs and CPT as needed IS hourly while awake for pulmonary hygiene prn Out of bed to chair as tolerated Maintain aspiration precautions at all times CARDIOVASCULAR: Follow hemodynamics. Vital signs per facility protocol GI & NUTRITION: Continue nutritional support Aspirations precautions Prokinetic agents and laxatives as needed KIDNEYS & ELECTROLYTES: Strict monitoring of intake and output Daily weights Avoid nephrotoxic agents Monitor electrolytes and replace as needed Goal urine output of 30mL/hr or 0.5mL/kg/hr Medications to be dosed according to renal function. Avoid contrast if possible ENDOCRINE: Maintain blood glucose between 100-180 at all times. Insulin sliding scale for blood glucose management Hypoglycemia and hyperglycemia protocol in place INFECTIOUS DISEASE: Trend temperature, WBC and procalcitonin level Follow cultures, deescalate antibiotics as soon as possible. Panculture if new onset fever HEMATOLOGY & COAGULATION: Monitor H&H. Keep Hgb > 7 Transfuse 1 unit of PRBC for Hgb < 7 Transfuse 1 pack of platelets of platelets < 20, 000 Watch for any signs and symptoms of bleeding SKIN: Pressure ulcer prevention per facility protocol Specialty mattress as needed ORTHO/REHAB Continue PT/OT PRN: MEDICATIONS Tylenol 650 mg po every 4 hrs for fever zofran 4 mg IV every 6 hrs for n/v Hydralazine 5 mg IV every 4 hrs systolic pressure > 160 bowel regiment: lactulose 20 gm PO BID PRN constipation Supportive measures: Continue GI and DVT prophylaxis All questions answered time spent: > 35 min DIANA SHOOK MD Nov 20, 2024 10:49
[2024-11-20] MEDS ORDERED: NON-FORMULARY MEDICATION 1 EACH (Ipratropium/Albuterol Sulfate (Combivent Respimat Inhal S IH PRN (11:00)
[2024-11-20] MEDS ORDERED: DEXTROSE 50%-WATER 50 ML DISP.SYRIN IV PRN (11:00)
[2024-11-20] MEDS ORDERED: GLUCAGON 1MG KIT 1 MG ML IM PRN (11:00)
[2024-11-20] MEDS ORDERED: NON-FORMULARY MEDICATION 1 EACH (Albuterol Sulfate (Ventolin Hfa) 2 PUFF) IH PRN (11:00)
--- NOTE | 2024-11-20 11:59 | NUR ---
DCP:HOME [place], [place] was on hospice and passed. Pt is staying with her cousin Ji Ibrahim while in the [place] is unsure when she will be heading back home, she states she may be here for a few more weeks. Pt does have a nebulizer at home. Pt is able to complete her ADLs independently however if there are days that she is having difficulty then her daughter assists her with them. PCP is Dr. Rosana Landin- [place] [phone]. At [place] pt will want to go back to her cousin's home and family can assist. Addendum: 11/20/24 at 1202 by REX UMANA Amended: Links added.
--- NOTE | 2024-11-20 17:52 | HMCIMG ---
EXAM: US for Deep Venous Thrombosis, bilateral Lower Extremity. CLINICAL HISTORY: Leg Pain and Swelling TECHNIQUE: Real-time ultrasound scan of the veins of the bilateral lower extremity with color Doppler flow, spectral waveform analysis and compression. COMPARISON: None provided. FINDINGS: DEEP VEINS: The common femoral, superficial femoral, and popliteal veins are echolucent and compressible. There is normal color Doppler flow throughout. The visualized calf veins appear patent. SOFT TISSUES: No popliteal fossa cyst or other abnormalities. IMPRESSION: No deep venous thrombosis evident on bilateral lower extremity examination. /[place]
--- NOTE | 2024-11-20 18:31 | CONS ---
[facility] CONSULTATION NOTE Date Patient Seen: Nov 20, 2024 Time of Visit: 18:31 Supervising Physician: Dr. Nelda Neal Reason for Consultation: Shotness of breath, acute hypoxic respiratory failure. Primary Care Physician: [ ] Outpatient Specialists: [ ] Inpatient Consults: [ ] PROBLEM LIST: 1. Acute bronchitis 2. Obstructive sleep apnea 3. Morbid obesity, BMI 59.6 4 SOB multifactorial (morbid obesity/DENIS untreated) PLAN Venous dopplers will need 6 MWT Will need adequate CPAP therapy Will need GLP1 weight loss is crucial HPI: Lina Durham is a 54-year-old lady, health history hyperlipidemia, hypertension, obesity, diabetes mellitus type 2, and recently discharged from the hospital on 11/17/2024, pneumonia resulting in sepsis. Patient presented to the emergency department on 11/19/2024 via EMS after experiencing shortness of the breath while walking from her car to a restaurant, the patient also became extremely diaphoretic, palpations, and fear of impending doom. At the local restaurant and EMS crew was there assess the patient and provided transport to the hospital for further clinical workup. Requested consult to assess patient for shortness of the breath and acute hypoxic respiratory failure. Vital signs: Temperature 98.2, pulse 93, respirations 18, blood pressure 99/65, oxygen saturation 96% on room air FiO2, 21. Lab results: WBC 15.8, hemoglobin 16.1, hematocrit 48.6%, platelets 284, sodium 140, potassium 4.0, BUN 36, creatinine 1.1, lactic acid 1.7, Mag 1.8. CXR one view results: No pneumothorax, no acute cardio pulmonary acute processes. US venous Doppler bilateral lower extremities results: No DVT bilateral lower limb extremity. The patient is assessment findings lung sounds clear over diminished in the bases, laboratory results, vital signs, recent health history, was reviewed and discussed with my supervising physician, Dr. Nelda Neal. At this time there is no need or requirement for immediate pulmonary interventions. At discharge, refer patient to [facility], Dr. Andre Martinez, for outpatient clinical workup including pulmonary function testing, and in lab sleep study. Recommendations: CPAP at q.h.s. and nightly Weight loss GLP 1 medication, manage outpatient environment by PCP Outpatient, pulmonary function testing, and in-lab sleep study Thank you for the consultation for the opportunity to participate in the care for this patient. PAST MEDICAL HX: see above PAST SURGICAL HX: noncontributory SOCIAL HISTORY: No tobacco, ETOH, or illicit drug use Coded Allergies: cephalexin (Unverified Allergy, Unknown, 11/13/24) REVIEW OF SYSTEMS: 12 point ROS reviewed with patient. Pertinent positives mentioned above. O therwise negative. PHYSICAL EXAM: GENERAL: alert, weak, oriented x 3 HEENT: EOMI, Sclera non icteric, moist mucosa NECK: Supple, no JVD, trachea midline LUNGS: Clear breath sounds bilaterally, minimally diminished in the bases, no wheezes or stridor present.. HEART: Regular rate and rhythm. Normal S1 and S2, without murmurs ABD: Abdomen soft, nontender. Bowel sounds present EXT: No clubbing cyanosis or edema NEURO: Alert and oriented to person, follows commands Vital Signs (last 8hr) Date Time Temp Pulse Resp B/P (MAP) Pulse Ox O2 Delivery O2 Flow Rate FiO2 11/20/24 16:00 98.2 90 20 101/54 92 Room Air 11/20/24 14:10 89 20 11/20/24 14:09 89 20 N/A Room Air 0.0 21 11/20/24 12:00 98.2 93 18 99/65 96 Room Air 21 11/20/24 10:52 87 20 N/A Room Air 0.0 21 11/20/24 10:52 87 20 LABS: Hematology Labs: Test 11/20/24 05:29 Range/Units White Blood Count 15.8 H 4.8-10.8 K/uL Red Blood Count 5.07 4.00-5.50 MIL/uL Hemoglobin 16.1 H 12.0-16.0 g/dL Hematocrit 48.6 H 36-48 % Mean Corpuscular Volume 95.9 79-99 fL Mean Corpuscular Hemoglobin 31.8 27.0-33.0 pg Mean Corpuscular Hemoglobin Concent 33.1 32.0-36.0 g/dL Red Cell Distribution Width 13.3 11.0-15.5 % Platelet Count 284 130-400 K/uL Mean Platelet Volume 9.8 7.5-10.5 fL Immature Granulocyte % (Auto) 0.5 0-1 % Neutrophils (%) (Auto) 61.0 40.0-77.0 % Lymphocytes (%) (Auto) 28.7 21.0-51.0 % Monocytes (%) (Auto) 8.2 3.0-13.0 % Eosinophils (%) (Auto) 1.3 0.0-8.0 % Basophils (%) (Auto) 0.3 0.0-5.0 % Neutrophils # (Auto) 9.6 H 1.8-7.7 K/uL Lymphocytes # (Auto) 4.5 1.0-4.8 K/uL Monocytes # (Auto) 1.3 H 0.1-1.0 K/uL Eosinophils # (Auto) 0.20 0.00-0.70 K/uL Basophils # (Auto) 0.04 0.00-0.20 K/uL Absolute Immature Granulocyte (auto 0.08 0-1 K/uL Nucleated Red Blood Cells 0.0 0.0-0.19 % Chemistry Labs: Test 11/20/24 15:45 11/20/24 11:23 11/20/24 05:29 11/19/24 20:08 Range/Units Whole Blood Glucose 216 H 70-110 MG/DL Troponin I High Sensitivity 5 4-50 ng/L Sodium Level 140 136-145 mmol/L Potassium Level 4.0 3.5-5.1 mmol/L Chloride Level 102 101-111 mmol/L Carbon Dioxide Level 29 21-32 mmol/L Blood Urea Nitrogen 36 H 7-18 mg/dL Creatinine 1.1 H 0.5-1.0 mg/dL Glomerular Filtration Rate Calc 60 >90 mL/min Random Glucose 220 H 70-105 mg/dL Lactic Acid Level 1.7 0.8-2.5 mmol/L Total Calcium 8.2 L 8.5-10.1 mg/dL Magnesium Level 1.80 1.80-2.40 mg/dL Total Bilirubin 0.4 0.2-1.0 mg/dL Aspartate Amino Transf (AST/SGOT) 12 10-37 U/L Alanine Aminotransferase (ALT/SGPT) 39 12-78 U/L Alkaline Phosphatase 75 50-136 U/L Total Protein 6.4 6.0-8.3 g/dL Albumin 2.9 L 3.5-5.0 g/dL B-Type Natriuretic Peptide 6 0-100 pg/mL DIAGNOSTICS / RADIOLOGY RESULTS: [ ] DAX PEREZ NP Nov 20, 2024 18:31 NELDA NEAL MD Nov 21, 2024 14:53
[2024-11-20] MEDS: BACITRACIN 28.4 GM OINT TP SCH (20:16)
[2024-11-21] VITALS (20 sets, daily range): BP systolic 81–173; BP diastolic 42–112; PULSE 61–82; RESP 18–21; TEMP 97.5–98.8; O2SAT 96–99
[2024-11-21] MEDS: 0.9% NACL 500ML IV.SOLN 500 ML IV SCH (01:29)
--- NOTE | 2024-11-21 01:30 | NUR ---
b/p b/p 81/48 , respiration 18, pulse 82 temp 98.3 f,sat 97 % on r/a , telemetry showing sinus rhythm heart rate 84,no chest pain, called hospitalist commercial litigation paralegal darrius sullivan with orders, bolus 500 cc normal saline
--- NOTE | 2024-11-21 01:45 | NUR ---
med effect b/p 107/54. pulse 76 , tele monitor showing sinus rhythm, sat 96 % on r/a.call vergara at reach
--- NOTE | 2024-11-21 02:30 | NUR ---
dizzy c/o dizziness,b/p 104/52 , resp 18, tele showing sr heart rate 74, sat 96 on r/a, temp 98.2, called hospitalist phonograph cartridge assembler tracie sullivan with orders , antivert 25 mg po given
[2024-11-21 04:54] LABS: NUCLEATED RED BLOOD CELLS 0.0 % (0.0-0.19); PLATELET COUNT (AUTO) 304.0 K/uL (130-400); RED BLOOD CELL COUNT(AUTO) 4.99 MIL/uL (4.00-5.50); RED CELL DISTRIBUTION WIDTH 13.2 % (11.0-15.5); WHITE BLOOD COUNT (AUTO) 12.8 K/uL (4.8-10.8)
[2024-11-21 05:34] LABS: ASPARTATE AMINOTRANSFERASE 16.0 U/L (10-37); CREATININE 0.9 mg/dL (0.5-1.0); GLOMERULAR FILTR. RATE CALC 76.0 mL/min (>90); GLUCOSE,RANDOM 137.0 mg/dL (70-105); SODIUM SERUM 139.0 mmol/L (136-145); TOTAL PROTEIN, SERUM 6.4 g/dL (6.0-8.3); UREA NITROGEN, BLOOD 22.0 mg/dL (7-18)
[2024-11-21] MEDS: LISINOPRIL 2.5 MG TABLET PO SCH (09:00)
[2024-11-21] MEDS: LORATAdine 10 mg 10 MG TABLET PO SCH (09:03)
[2024-11-21] MEDS: MAGNESIUM 2GM PREMIX 50ML 50 ML IV PRN (09:07)
--- NOTE | 2024-11-21 11:25 | CONS ---
[facility] Consultation Note Cardiology consult dictated for Giulia Mendoza MD Date of service 11/21/2024 Reason for consult: Orthostatic hypotension History of present illness: 54-year-old female presented for evaluation of chest tightness and difficulty breathing. She is here from [place] due to of a family member. Cardiology consult was requested for evaluation of orthostatic hypotension. Patient lowest blood pressure was 1 in the morning of 80 systolic. on arrival magnesium 1.3 and is being supplemented per sliding scale. She was told by EMT her blood pressure was low and potassium was low and needed further assessment she was brought to the emergency department. Troponin 4,4 with Twelve lead EKG demonstrated sinus rhythm no acute findings. She was discharged yesterday after being here for several days due to sepsis, pneumonia. Currently she is resting comfortably with no recurrence of symptoms. Troponins x5 has been normal. Electrocardiogram showed no acute ST changes but did show some low voltage. Brain natriuretic peptide level normal at six. Review of systems: 14 point review of systems performed pertinent positives and negatives discussed in HPI Past medical history: Positive for hypertension, hyperlipidemia, diabetes mellitus type 2, morbid obesity, obstructive sleep apnea, COPD, tobacco use. Negative for CVA TIA no PE no DVT no liver kidney or thyroid disease. Past surgical history: Positive for section, cholecystectomy and left shoulder surgery. Family history: Noncontributory Social history: She is visiting from [place] admits to smoking 1.5 packs of cigarettes a day no alcohol and no illegal drug use. Current medication: Lisinopril 2.5 mg daily, metoprolol tartrate 12.5 mg b.i.d., furosemide 40 mg p.o. b.i.d., atorvastatin 40 mg at hours sleep, aspirin 81 mg daily, sliding-scale insulin, heparin 5000 units every 12 hours and IV antibiotics. Review of blood work: Basic metabolic panel with sodium of 139, potassium 4.3, BUN of 22 creatinine of 0.9 and a GFR of 76, magnesium 1.50. CBC with white blood cells of 12.8 hemoglobin of 16.1 hematocrit of 47.6 and platelets of 304 Physical exam: Blood pressure 108/44 heart rate of 80 beats per minute and regular normal S1-S2 no rubs gallops murmurs noted. Neck is supple no jugular vein distention no carotid bruits. Bilateral breath sounds clear to auscultation. Lower extremities no edema no cyanosis. Patient is alert awake oriented. All others within normal limits. Assessment: Atypical chest pain Hypotension Hypomagnesemia COPD Diabetes mellitus type 2 Morbid obesity Obstructive sleep apnea Tobacco abuse Plan: 54-year-old female presented for evaluation of chest tightness and shortness of breath. Cardiology consult was requested for evaluation of orthostatic hypotension. She had been discharged the day before after spending several days hospitalized due to sepsis and pneumonia. She is visiting from [place] due to family . On arrival she was noted to have a low magnesium and she reported low blood pressure for EMS on 1st contact. Magnesium is being covered per sliding scale and she is receiving IV antibiotics. She denies recurrence of symptoms today we can proceed with orthostatic vital signs. We will schedule her for 2D echocardiogram and she will need cardiac calcium score stress testing either here or in [place]. Addendum: Because of low voltage we will check an EKG to assess systolic function and rule out pericardial effusion. If this exam is normal she can follow up with her physician in [place] for a CT coronary calcium score for additional screening of atypical symptoms. ATTESTATION BY PHYSICIAN I have seen and examined the patient. I reviewed the documentation, medical decision making, and treatment plan as noted by the mid-level provider above. I agree with the findings and plan of care. GIULIA MENDOZA MD, [facility] Nov 21, 2024 11:25 GIULIA MENDOZA MD Nov 21, 2024 11:37
[2024-11-21] MEDS: MAGNESIUM 2GM PREMIX 50ML IV ONE (12:17)
--- NOTE | 2024-11-21 12:54 | PN ---
[facility] PROGRESS NOTE Date of Service: Nov 21, 2024 Time of Service: 12:53 SUBJECTIVE: 11/20 patient is seen and examined at bedside, case discussed with the RN, no acute events overnight, hemodynamically stable, afebrile, saturating normal on room air. Patient admits dry nonproductive cough, she feels weak. No chest pain, shortness shortness for breath, no nausea, no vomiting. CBC shows a WBC of 50.8, hemoglobin 16.1, hematocrit 48.6. The patient recently discharged from the hospital on Medrol Dosepak. We will continue broad-spectrum antibiotics for additional 24 hours, pulmonary consultation requested, follow input recommendation, anticipate discharge home in the next 24 hours. 11/21 patient is seen and examined at bedside, case discussed with the RN, no acute events overnight, patient alert oriented x3 comfortable in bed, results of Doppler negative for DVT, discussed with the patient. Patient already evaluated by audograph operator, echocardiogram pending to evaluate ejection fraction. He for unremarkable patient can follow with her audograph operator when returning back home. In the meantime continue current medical management, continue broad-spectrum IV antibiotics, follow a.m. labs. If blood pressure stable, anticipate discharge home in the next 24 hours. We will decrease the dose of furosemide from 40 mg p.o. b.i.d. to 20 mg p.o. daily. Discussed with the patient, in agreement. REVIEW OF SYSTEMS CONSTITUTIONAL: Denies fevers, chills, or night sweats. No unintentional weight loss reported. NEUROLOGICAL: Denies headache, amaurosis fugax, motor weakness, sensory defic it, vertigo/spinning sensation, gait abnormalities, or tremors. ENT: No hearing loss, otalgia, otorrhea, rhinitis, rhinorrhea, hoarseness, or sore throat. CARDIOVASCULAR: Denies any exertional angina, dyspnea on exertion, orthopnea, paroxysmal nocturnal dyspnea, palpitations, life-threatening arrhythmias, claudication. PULMONARY: Denies any shortness of breath, cough, phlegm/sputum, hemoptysis, pleuritic chest pain. SLEEP: Denies morning headaches, daytime somnolence or napping. Denies difficulty falling asleep, staying asleep, waking from sleep. Denies knowledge of snoring. GASTROINTESTINAL: Denies any type of dysphagia to either liquids or solids. Denies nausea, vomiting, pyrosis, early satiety, abdominal pain, diarrhea, constipation, or changes in stool consistency or caliber. Denies coffee-ground emesis, hematemesis, hematochezia, or melanotic stools. GENITOURINARY: Denies frequency, urgency, nocturia, hematuria or incontinence (Storage/Irritative symptoms.) Low urinary stream, straining to void, urinary intermittency or hesitancy, splitting of the voiding stream, terminal dribbling. ENDOCRINOLOGIC: Denies polyuria, polydipsia, polyphagia or heat/cold intolerances. HEMATOLOGIC: Denies thrombophilia/previous clots, or coagulopathy/bleeding disorders. ONCOLOGIC: Denies personal history of malignancy. DERMATOLOGIC: Denies rashes or pruritus. PSYCHIATRIC: Denies any suicidal or homicidal ideation. Denies hallucinations. PHYSICAL EXAM GENERAL APPEARANCE: The patient is awake, alert, and oriented, in no acute cardiopulmonary distress. NEUROLOGICAL: Cranial nerves II-XII grossly intact. Motor is 5/5 in bilateral upper and lower extremities proximal to distal. No sensory deficits. HEENT: Face is symmetric. Pupils are equal and reactive. Extraocular movements are intact. NECK: Supple. No JVD. No thyromegaly. No submental, submandibular, pre- /postauricular, occipital or supraclavicular lymphadenopathy. CHEST: Normal chest expansion. No Telemetry. LUNGS: Absence of any rales, rhonchi or any wheezing. CARDIOVASCULAR: Regular. S1 and S2 normal. No appreciable rubs, murmurs or gallops. ABDOMEN: Soft, nontender, and nondistended. There is no rebound, voluntary guarding, or rigidity. : Deferred. No Guerrero. EXTREMITIES: Non-edematous and not cyanotic. No clubbing. Good capillary refill. SKIN: No skin breakdown. Vital Signs (last 8hr) Date Time Temp Pulse Resp B/P (MAP) Pulse Ox O2 Delivery O2 Flow Rate FiO2 11/21/24 11:12 77 20 11/21/24 11:12 77 20 N/A Room Air 11/21/24 08:00 98.4 80 20 108/44 97 Room Air 11/21/24 06:43 76 20 N/A Room Air 11/21/24 06:42 75 20 LABS: Laboratory: Test 11/21/24 11:19 11/21/24 04:23 11/20/24 11:23 11/20/24 05:29 Range/Units Whole Blood Glucose 224 #H 70-110 MG/DL Bedside Glucose Comment Notified Nurse White Blood Count 12.8 H 4.8-10.8 K/uL Red Blood Count 4.99 4.00-5.50 MIL/uL Hemoglobin 16.1 H 12.0-16.0 g/dL Hematocrit 47.6 36-48 % Mean Corpuscular Volume 95.4 79-99 fL Mean Corpuscular Hemoglobin 32.3 27.0-33.0 pg Mean Corpuscular Hemoglobin Concent 33.8 32.0-36.0 g/dL Red Cell Distribution Width 13.2 11.0-15.5 % Platelet Count 304 130-400 K/uL Mean Platelet Volume 9.9 7.5-10.5 fL Nucleated Red Blood Cells 0.0 0.0-0.19 % Sodium Level 139 136-145 mmol/L Potassium Level 4.3 3.5-5.1 mmol/L Chloride Level 101 101-111 mmol/L Carbon Dioxide Level 29 21-32 mmol/L Blood Urea Nitrogen 22 H 7-18 mg/dL Creatinine 0.9 0.5-1.0 mg/dL Glomerular Filtration Rate Calc 76 >90 mL/min Random Glucose 137 H 70-105 mg/dL Total Calcium 8.1 L 8.5-10.1 mg/dL Magnesium Level 1.50 L 1.80-2.40 mg/dL Total Bilirubin 0.7 # 0.2-1.0 mg/dL Aspartate Amino Transf (AST/SGOT) 16 10-37 U/L Alanine Aminotransferase (ALT/SGPT) 35 12-78 U/L Alkaline Phosphatase 81 50-136 U/L Total Protein 6.4 6.0-8.3 g/dL Albumin 3.0 L 3.5-5.0 g/dL Troponin I High Sensitivity 5 4-50 ng/L Immature Granulocyte % (Auto) 0.5 0-1 % Neutrophils (%) (Auto) 61.0 40.0-77.0 % Lymphocytes (%) (Auto) 28.7 21.0-51.0 % Monocytes (%) (Auto) 8.2 3.0-13.0 % Eosinophils (%) (Auto) 1.3 0.0-8.0 % Basophils (%) (Auto) 0.3 0.0-5.0 % Neutrophils # (Auto) 9.6 H 1.8-7.7 K/uL Lymphocytes # (Auto) 4.5 1.0-4.8 K/uL Monocytes # (Auto) 1.3 H 0.1-1.0 K/uL Eosinophils # (Auto) 0.20 0.00-0.70 K/uL Basophils # (Auto) 0.04 0.00-0.20 K/uL Absolute Immature Granulocyte (auto 0.08 0-1 K/uL Lactic Acid Level 1.7 0.8-2.5 mmol/L Test 11/20/24 02:35 11/19/24 20:08 Range/Units Urine Color YELLOW YELLOW Urine Appearance CLEAR CLEAR Urine pH 6.0 5.0-8.0 Urine Specific [place] 1.025 1.001-1.031 Urine Protein NEGATIVE NEGATIVE mg/dL Urine Glucose (UA) NEGATIVE NEGATIVE mg/dL Urine Ketones NEGATIVE NEGATIVE mg/dL Urine Occult Blood NEGATIVE NEGATIVE Urine Nitrate NEGATIVE NEGATIVE Urine Bilirubin NEGATIVE NEGATIVE mg/dL Urine Urobilinogen 0.2 0.2-1.0 mg/dL Urine Leukocyte Esterase NEGATIVE NEGATIVE Kirk/uL B-Type Natriuretic Peptide 6 0-100 pg/mL Current Medications Medications (Trade) Dose Ordered Sig/Brodie Route PRN Reason Start Time Stop Time Status Last Admin Dose Admin Acetaminophen (TYLenol 325MG TAB) 650 mg Q4H PRN PO MILD PAIN (1-3) 11/19/24 23:30 12/19/24 23:29 11/21/24 01:38 650 MG Acetaminophen (TYLenol 325MG TAB) 650 mg Q6H PRN PO TEMPERATURE GREATER THAN 101.5 11/19/24 23:30 12/19/24 23:29 Acetaminophen/ Hydrocodone Bitart (NORco 5/325MG) 1 tab HSPRN PRN PO PAIN 6-10 11/20/24 11:00 11/25/24 10:59 Albuterol (DUOneb) 1 udvial W0CUDHT IH 11/20/24 02:00 12/20/24 01:59 11/21/24 11:10 1 UDVIAL Aspirin (Aspirin 325mg Tab) 325 mg ONCE PO 11/19/24 20:00 11/19/24 23:59 DC 10/2/25 20:16 325 MG Aspirin (Aspirin 81mg Ec Tab) 81 mg DAILY PO 11/20/24 09:00 12/20/24 08:59 11/21/24 09:03 81 MG Atorvastatin Calcium (LIPItor 40MG) 40 mg HS PO 11/20/24 21:00 12/20/24 20:59 11/20/24 20:14 40 MG Bacitracin (Bacitracin 28.4gm) BID TP 11/20/24 21:00 12/20/24 20:59 11/21/24 09:05 1 GM Dextrose (D50w) 50 ml AD PRN IV HYPOGLYCEMIA PROTOCOL 11/19/24 23:30 12/19/24 23:29 Dextrose (D50w) 50 ml AD PRN IV HYPOGLYCEMIA PROTOCOL 11/20/24 11:00 11/20/24 10:54 DC Ergocalciferol (Drisdol) 50,000 unit QWEEK PO 11/27/24 09:00 12/27/24 08:59 Famotidine (Pepcid 20mg Tab) 20 mg DAILY PO 11/20/24 09:00 12/20/24 08:59 11/21/24 09:03 20 MG Fluticasone Propionate (FLOnase 50 mcg/ spray 16g bottle) 1 SPRAY DAILY NS 11/21/24 09:00 12/21/24 08:59 11/21/24 09:56 1 SPRAYS Furosemide (LASix 20MG TAB) 20 mg DAILY PO 11/22/24 09:00 12/20/24 20:59 Furosemide (LASix 40MG TAB) 40 mg BID PO 11/20/24 21:00 11/21/24 12:28 DC 11/21/24 09:04 40 MG Gabapentin (NEURontin 100 mg CAP) 100 mg TID PO 11/20/24 14:00 12/20/24 13:59 11/21/24 09:03 100 MG Glucagon (Glucagon 1mg Kit) 1 mg AD PRN IM HYPOGLYCEMIA PROTOCOL 11/19/24 23:30 12/19/24 23:29 Glucagon (Glucagon 1mg Kit) 1 mg AD PRN IM HYPOGLYCEMIA PROTOCOL 11/20/24 11:00 11/20/24 10:54 DC Guaifenesin (MUCinex 600 MG TABLET.ER) 1,200 mg BID PO 11/20/24 21:00 12/20/24 20:59 11/21/24 09:02 1,200 MG Guaifenesin/ Dextromethorphan (RobiTUSSin DM 200/20MG 10ML) 10 ml Q4H PRN PO COUGH 11/19/24 23:30 12/19/24 23:29 Heparin Sodium (Porcine) (HEParin 5,000 UNIT VIAL) 5,000 unit Q12H SQ 11/19/24 23:30 12/19/24 23:29 11/21/24 11:55 5,000 UNIT Hydrocortisone Acetate (anuSOL-HC 25MG SUPP) 1 supp DAILY PRN NE HEMORRHOIDS 11/20/24 11:00 12/20/24 10:59 Insulin Glargine (LANtus 100 UNITS/ML 10 ML VIAL) 40 units HS SQ 11/20/24 21:00 12/20/24 20:59 11/20/24 20:23 40 UNITS Insulin Human Regular (humuLIN R 100 UNIT/ML 3ML) INSULIN SLIDING SCAL... ACHS SQ 11/20/24 07:30 12/20/24 07:29 11/21/24 11:54 3 UNIT Insulin Human Regular (humuLIN R 100 UNIT/ML 3ML) INSULIN SLIDING SCAL... ACHS SQ 11/20/24 11:30 11/20/24 10:55 DC Levofloxacin/ Dextrose 150 ml @ 100 mls/hr Q48H IV 11/21/24 22:00 12/01/24 21:59 Lisinopril (Prinivil 2.5mg) 2.5 mg DAILY PO 11/21/24 09:00 12/21/24 08:59 Loratadine (LORATAdine 10 mg) 10 mg DAILY PO 11/21/24 09:00 12/21/24 08:59 11/21/24 09:03 10 MG Magnesium Sulfate 50 ml @ 0 mls/hr PROTOCOL PRN IV OTHER [SEE ORDER COMMENTS] 11/19/24 23:30 12/19/24 23:29 11/21/24 09:07 25 MLS/HR Metoprolol Tartrate (loprESSOR) 12.5 mg BID PO 11/20/24 21:00 12/20/24 20:59 11/20/24 20:14 12.5 MG Miscellaneous Medication (Albuterol Sulfate (Ventolin Hfa)) 2 puff W8NDIAL PRN IH wheezing 11/20/24 11:00 11/20/24 10:58 DC Miscellaneous Medication (Ipratropium/ Albuterol Sulfate (Combivent Respimat Inhal [place])) 2 puff TID PRN IH SHORTNESS OF BREATH/WHEEZING 11/20/24 11:00 11/20/24 10:58 DC Montelukast Sodium (SinguLAIR) 10 mg DAILY PO 11/21/24 09:00 12/21/24 08:59 11/21/24 09:03 10 MG Nitroglycerin (Nitrostat) 0.4 mg PROTOCOL PRN SL CHEST PAIN 11/19/24 23:30 12/19/24 23:29 Ondansetron HCl (zoFRAN 4MG INJ) 4 mg Q6H PRN IV NAUSEA/VOMITING 11/19/24 23:30 12/19/24 23:29 Potassium Chloride 100 ml @ 100 mls/hr AD PRN IV POTASSIUM PROTOCOL 11/19/24 23:30 12/19/24 23:29 Potassium Chloride (K-Dur/Klor-Con 20meq) 20 meq AD PRN PO POTASSIUM PROTOCOL 11/19/24 23:30 12/19/24 23:29 Potassium Chloride (KCl 10% Elixir 20meq/15ml) 20 meq AD PRN PO POTASSIUM PROTOCOL 11/19/24 23:30 12/19/24 23:29 Sodium Chloride 500 ml @ 0 mls/hr Q0M IV 11/21/24 01:30 11/21/24 12:09 DC 11/21/24 01:29 500 MLS/HR Sodium Chloride 1,000 ml @ 0 mls/hr ONCE IV 11/19/24 20:30 11/20/24 11:05 DC 11/19/24 21:33 1,000 MLS/HR DIAGNOSTICS / RADIOLOGY: [ ] ASSESSMENT: Acute bacterial bronchitis POA Acute respiratory failure POA Chest pain r/o ACS POA Transient hypotension -improved POA Lactic acidosis POA Acute Kidney injury POA Hypomagnesemia POA Uncontrolled diabetes POA Hypertension POA Hyperlipidemia POA Chronic obstructive pulmonary disease POA Morbidly obese POA Obstructive sleep apnea no CPAP machine POA Dilated pulmonary trunk concerning for pulmonary artery hypertension per CT on 11/14/2024 POA PLAN: patient is seen and examined at bedside, case discussed with the RN, no acute events overnight, patient alert oriented x3 comfortable in bed, results of Doppler negative for DVT, discussed with the patient. Patient already evaluated by audograph operator, echocardiogram pending to evaluate ejection fraction. He for unremarkable patient can follow with her audograph operator when returning back home. In the meantime continue current medical management, continue broad-spectrum IV antibiotics, follow a.m. labs. If blood pressure stable, anticipate discharge home in the next 24 hours. We will decrease the dose of furosemide from 40 mg p.o. b.i.d. to 20 mg p.o. daily. Discussed with the patient, in agreement. NEURO: Minimize central acting medications as possible. Fall Precautions. Well lighted room through the day and minimize interruptions through the night to prevent acute delirium. PULMONARY: Supplemental 02 as needed BiPAP as necessary, for respiratory distress Titrate Fio2 to keep Spo2 > or = 90% DuoNebs and CPT as needed IS hourly while awake for pulmonary hygiene prn Out of bed to chair as tolerated Maintain aspiration precautions at all times CARDIOVASCULAR: Follow hemodynamics. Vital signs per facility protocol GI & NUTRITION: Continue nutritional support Aspirations precautions Prokinetic agents and laxatives as needed KIDNEYS & ELECTROLYTES: Strict monitoring of intake and output Daily weights Avoid nephrotoxic agents Monitor electrolytes and replace as needed Goal urine output of 30mL/hr or 0.5mL/kg/hr Medications to be dosed according to renal function. Avoid contrast if possible ENDOCRINE: Maintain blood glucose between 100-180 at all times. Insulin sliding scale for blood glucose management Hypoglycemia and hyperglycemia protocol in place INFECTIOUS DISEASE: Trend temperature, WBC and procalcitonin level Follow cultures, deescalate antibiotics as soon as possible. Panculture if new onset fever HEMATOLOGY & COAGULATION: Monitor H&H. Keep Hgb > 7 Transfuse 1 unit of PRBC for Hgb < 7 Transfuse 1 pack of platelets of platelets < 20, 000 Watch for any signs and symptoms of bleeding SKIN: Pressure ulcer prevention per facility protocol Specialty mattress as needed ORTHO/REHAB Continue PT/OT PRN: MEDICATIONS Tylenol 650 mg po every 4 hrs for fever zofran 4 mg IV every 6 hrs for n/v Hydralazine 5 mg IV every 4 hrs systolic pressure > 160 bowel regiment: lactulose 20 gm PO BID PRN constipation Supportive measures: Continue GI and DVT prophylaxis All questions answered time spent: > 35 min DIANA SHOOK MD Nov 21, 2024 12:54
--- NOTE | 2024-11-21 13:36 | PN ---
[facility] PROGRESS NOTE Date Patient Seen: Nov 21, 2024 Time of Visit: 13:36 Supervising Physician: Dr. Rommel Neal Primary Care Physician: [ ] Outpatient Specialists: [ ] Inpatient Consults: [ ] PROBLEM LIST: Acute bronchitis Obstructive sleep apnea Morbid obesity, BMI 59.6 Recommendations: Venous dopplers, results: Negative bilateral for DVT We will require 6 minute ambulation test DENIS undiagnosed and untreated, CPAP initiated q.h.s. We will require GLP 1 medication therapy Weight loss is critical INTERVAL HISTORY: 11/21-patient seen and assessed by myself patient is resting upon her bed in high Ceja's position watching television with glasses on, friendly and conversant. Prior to rounding on patient reviewed and discussed patient's chart with Saundra, patient's bedside nurse Reviewed and discussed with patient laboratory results vital signs, plan of care diagnostic tests results. Discussed gained acceptance patient will be utilizing CPAP tonight during sleep. VSS. Afebrile. Patient does not require supplemental oxygen. REVIEW OF SYSTEMS: 12 point ROS reviewed with patient. Pertinent positives mentioned above. Otherwise negative. PHYSICAL EXAM: GENERAL: alert, weak, oriented x 3 HEENT: EOMI, Sclera non icteric, moist mucosa NECK: Supple, no JVD, trachea midline LUNGS: Clear breath sounds bilaterally, minimally diminished in the bases, no wheezes or stridor present.. HEART: Regular rate and rhythm. Normal S1 and S2, without murmurs ABD: Abdomen soft, nontender. Bowel sounds present EXT: No clubbing cyanosis or edema NEURO: Alert and oriented to person, follows commands Vital Signs (last 8hr) Date Time Temp Pulse Resp B/P (MAP) Pulse Ox O2 Delivery O2 Flow Rate FiO2 11/21/24 12:00 97.5 61 21 100/58 100 Room Air 11/21/24 11:12 77 20 11/21/24 11:12 77 20 N/A Room Air 11/21/24 08:00 98.4 80 20 108/44 97 Room Air 11/21/24 06:43 76 20 N/A Room Air 11/21/24 06:42 75 20 LABS: Hematology Labs: Test 11/21/24 04:23 11/20/24 05:29 Range/Units White Blood Count 12.8 H 4.8-10.8 K/uL Red Blood Count 4.99 4.00-5.50 MIL/uL Hemoglobin 16.1 H 12.0-16.0 g/dL Hematocrit 47.6 36-48 % Mean Corpuscular Volume 95.4 79-99 fL Mean Corpuscular Hemoglobin 32.3 27.0-33.0 pg Mean Corpuscular Hemoglobin Concent 33.8 32.0-36.0 g/dL Red Cell Distribution Width 13.2 11.0-15.5 % Platelet Count 304 130-400 K/uL Mean Platelet Volume 9.9 7.5-10.5 fL Nucleated Red Blood Cells 0.0 0.0-0.19 % Immature Granulocyte % (Auto) 0.5 0-1 % Neutrophils (%) (Auto) 61.0 40.0-77.0 % Lymphocytes (%) (Auto) 28.7 21.0-51.0 % Monocytes (%) (Auto) 8.2 3.0-13.0 % Eosinophils (%) (Auto) 1.3 0.0-8.0 % Basophils (%) (Auto) 0.3 0.0-5.0 % Neutrophils # (Auto) 9.6 H 1.8-7.7 K/uL Lymphocytes # (Auto) 4.5 1.0-4.8 K/uL Monocytes # (Auto) 1.3 H 0.1-1.0 K/uL Eosinophils # (Auto) 0.20 0.00-0.70 K/uL Basophils # (Auto) 0.04 0.00-0.20 K/uL Absolute Immature Granulocyte (auto 0.08 0-1 K/uL Chemistry Labs: Test 11/21/24 11:19 11/21/24 04:23 11/20/24 11:23 11/20/24 05:29 Range/Units Whole Blood Glucose 224 #H 70-110 MG/DL Bedside Glucose Comment Notified Nurse Sodium Level 139 136-145 mmol/L Potassium Level 4.3 3.5-5.1 mmol/L Chloride Level 101 101-111 mmol/L Carbon Dioxide Level 29 21-32 mmol/L Blood Urea Nitrogen 22 H 7-18 mg/dL Creatinine 0.9 0.5-1.0 mg/dL Glomerular Filtration Rate Calc 76 >90 mL/min Random Glucose 137 H 70-105 mg/dL Total Calcium 8.1 L 8.5-10.1 mg/dL Magnesium Level 1.50 L 1.80-2.40 mg/dL Total Bilirubin 0.7 # 0.2-1.0 mg/dL Aspartate Amino Transf (AST/SGOT) 16 10-37 U/L Alanine Aminotransferase (ALT/SGPT) 35 12-78 U/L Alkaline Phosphatase 81 50-136 U/L Total Protein 6.4 6.0-8.3 g/dL Albumin 3.0 L 3.5-5.0 g/dL Troponin I High Sensitivity 5 4-50 ng/L Lactic Acid Level 1.7 0.8-2.5 mmol/L Test 11/19/24 20:08 Range/Units B-Type Natriuretic Peptide 6 0-100 pg/mL DIAGNOSTICS / RADIOLOGY RESULTS: [ ] PLAN NEURO: Minimize central acting medications as possible. Maintain fall precautions, adequate lighting during the day PULMONARY: Supplemental 02 as needed. Maintain aspiration precautions at all times CARDIOVASCULAR: Follow hemodynamics. Vital signs per facility protocol GI & NUTRITION: Continue with nutritional support. Continue stool softeners and laxatives as needed. KIDNEYS & ELECTROLYTES: Strict monitoring of intake, output and overall fluid balance. Avoid nephrotoxic medications to the extent possible. Medications to be dosed according to renal function. Monitor electrolytes and replace as needed ENDOCRINE: Maintain blood glucose between 100-180 at all times. Hypoglycemia protocol in place INFECTIOUS DISEASE: Trend temperature, WBC and procalcitonin level Follow cultures, deescalate antibiotics as soon as possible. Panculture if new onset fever ONCOLOGY/HEMATOLOGY/COAGULATION: Monitor for s/s of bleeding Monitor hemoglobin, coagulation studies as needed SKIN: Pressure ulcer prevention per facility protocol Specialty mattress ORTHO/REHAB: Continue PT/OT Prophylaxis: Continue GI and DVT prophylaxis Code Status: Full Resuscitation Disposition: TBD Other: Total patient care time exceeds 35 minutes excluding all procedures. DAX PEREZ NP Nov 21, 2024 13:36
[2024-11-21] MEDS: HYDROcodone/APAP 5/325 1 TAB TABLET PO PRN (18:21)
[2024-11-22] VITALS (18 sets, daily range): BP systolic 99–174; BP diastolic 48–103; PULSE 73–98; RESP 17–20; TEMP 97.8–98.9; O2SAT 91–96
[2024-11-22 04:10] LABS: NUCLEATED RED BLOOD CELLS 0.0 % (0.0-0.19); PLATELET COUNT (AUTO) 294.0 K/uL (130-400); RED BLOOD CELL COUNT(AUTO) 4.82 MIL/uL (4.00-5.50); RED CELL DISTRIBUTION WIDTH 13.0 % (11.0-15.5); WHITE BLOOD COUNT (AUTO) 10.3 K/uL (4.8-10.8)
[2024-11-22 04:43] LABS: ASPARTATE AMINOTRANSFERASE 15.0 U/L (10-37); CREATININE 0.8 mg/dL (0.5-1.0); GLOMERULAR FILTR. RATE CALC 88.0 mL/min (>90); GLUCOSE,RANDOM 191.0 mg/dL (70-105); SODIUM SERUM 138.0 mmol/L (136-145); TOTAL PROTEIN, SERUM 6.3 g/dL (6.0-8.3); UREA NITROGEN, BLOOD 17.0 mg/dL (7-18)
--- NOTE | 2024-11-22 07:08 | HMCIMG ---
EXAM: CR Chest, 1 View. CLINICAL HISTORY: Assess patient's condition after initial treatment COMPARISON: 11/19. FINDINGS: LUNGS: Mild pulmonary vascular congestion. PLEURAL SPACES: No evidence of pleural effusion or pneumothorax. MEDIASTINUM: Cardiomegaly. BONES: No aggressive appearing osseous lesion seen. IMPRESSION: 1. Mild pulmonary vascular congestion. 2. Cardiomegaly. /Edgard
[2024-11-22 07:26] LABS: ABG BASE EXCESS 3.7 mmol/L (-2.0-3.0); ABG HCO3 28.4 mmol/L (21.0-28.0); ABG OXYGEN SATURATION 96.1 % (94.0-98.0); ABG PCO2 43 mmHg (32-45); ABG PH 7.437 (7.350-7.450); DEVICE COMMENT RR; PO2, ARTERIAL BG 79.8 mmHg (83.0-108.0); TEMPERATURE, CELSIUS BG 37.0 CELSIUS (35.5-37.0); VENT MODE, BG RA (ROOM AIR)
[2024-11-22] MEDS: MAGNESIUM 2GM PREMIX 50ML IV ONE (08:47)
--- NOTE | 2024-11-22 09:53 | PN ---
[facility] CARDIOLOGY PROGRESS NOTE Date Patient Seen: Nov 22, 2024 Time of Visit: 09:45 Interval History: This is a 54-year-old white female from [place] who was visiting due to a of a family member with a past medical history of hypertension, hyperlipidemia, type 2 diabetes mellitus, morbid obesity, obstructive sleep apnea/COPD and tobacco use was recently hospitalized due to sepsis and pneumonia. She was discharged on 11/20/2024. She presented back to the hospital due to dyspnea. The patient had some hypotensive blood pressure readings which prompted cardiology consultation. High sensitivity cardiac troponins were normal. Her EKG demonstrated a normal sinus rhythm with low voltage but no acute ischemic changes. BNP was normal at 6. There was no further evidence of orthostatic hypotension and she has been on low doses of antihypertensive drug therapy. There was also concerned of some chest pain which she reports was constant, across her chest and worse if she would raise her arms. This morning, she is comfortable, offers no complaints of chest pain and there is no reproducible chest wall pain with palpation. A 2D echocardiogram is pending to reassess LV function and to assess for any pericardial effusion given low voltage on her EKG. She offers no orthopnea or PND. Physical Examination: GENERAL: Morbidly obese female, sitting up in bed, No acute distress. HEAD: Normal with no signs of head trauma. EYES: PERRLA, EOMI, conjunctiva and sclera normal. NECK: Supple without JVD. There is no tenderness, lymphadenopathy, or masses. No thyromegaly. Normal carotid upstrokes without bruits. LUNGS: Clear breath sounds bilaterally. No wheezes, or rhonchi. HEART: Normal rate and rhythm. Normal S1 and S2 without murmurs, gallop or rub. VASC: Peripheral pulses +2 bilaterally. EXT: No clubbing, cyanosis, there is trace of pedal edema. Lower extremities demonstrate skin discoloration changes consistent with venous insufficiency. NEURO: Awake, alert, and oriented x3. No focal neurological deficits noted. Laboratory: Hematology Labs: Test 11/22/24 03:36 Range/Units White Blood Count 10.3 4.8-10.8 K/uL Red Blood Count 4.82 4.00-5.50 MIL/uL Hemoglobin 15.4 12.0-16.0 g/dL Hematocrit 46.7 36-48 % Mean Corpuscular Volume 96.9 79-99 fL Mean Corpuscular Hemoglobin 32.0 27.0-33.0 pg Mean Corpuscular Hemoglobin Concent 33.0 32.0-36.0 g/dL Red Cell Distribution Width 13.0 11.0-15.5 % Platelet Count 294 130-400 K/uL Mean Platelet Volume 9.9 7.5-10.5 fL Nucleated Red Blood Cells 0.0 0.0-0.19 % Chemistry Labs: Test 11/22/24 05:44 11/22/24 03:36 11/21/24 16:01 11/20/24 11:23 Range/Units Whole Blood Glucose 188 H 70-110 MG/DL Sodium Level 138 136-145 mmol/L Potassium Level 4.0 3.5-5.1 mmol/L Chloride Level 101 101-111 mmol/L Carbon Dioxide Level 29 21-32 mmol/L Blood Urea Nitrogen 17 7-18 mg/dL Creatinine 0.8 0.5-1.0 mg/dL Glomerular Filtration Rate Calc 88 >90 mL/min Random Glucose 191 H 70-105 mg/dL Total Calcium 8.5 8.5-10.1 mg/dL Magnesium Level 1.70 L 1.80-2.40 mg/dL Total Bilirubin 0.6 0.2-1.0 mg/dL Aspartate Amino Transf (AST/SGOT) 15 10-37 U/L Alanine Aminotransferase (ALT/SGPT) 29 12-78 U/L Alkaline Phosphatase 77 50-136 U/L Total Protein 6.3 6.0-8.3 g/dL Albumin 3.0 L 3.5-5.0 g/dL Bedside Glucose Comment Notified Nurse Troponin I High Sensitivity 5 4-50 ng/L Diagnostics / Radiology: Impression and Plan: Atypical chest pain: -the patient ruled out for acute myocardial ischemia and no ischemic EKG changes -await results of 2D echocardiogram and await results (preliminary demonstrates normal EF and trivial effusion) -the patient is planning to return to [place] where she can undergo further cardiac workup as an outpatient Hypotension: -blood pressure has normalized and continues on low doses of lisinopril, michelle nue furosemide Hypomagnesemia: -replace magnesium to a magnesium level of 2.0 Comorbidities: COPD Diabetes mellitus type 2 Morbid obesity Obstructive sleep apnea Tobacco abuse PHYSICIAN ATTESTATION OF PHYSICIAN REMOTE SENSING TECHNOLOGIST DOCUMENTATION: I attest that I was physically present for the alfred portions of the service and evaluated the patient with the Physician Endocrinologist, and I reviewed and discussed the case with the Physician Endocrinologist and made modifications to the Physician Endocrinologist's findings and plans of care as documented above KARL CASTILLO Nov 22, 2024 09:53 KATHIA KOHLER MD Nov 22, 2024 14:16
[2024-11-22] MEDS ORDERED: NITR0.4T50 SL (10:29)
[2024-11-22] MEDS ORDERED: FURO20TA6 PO (10:29)
--- NOTE | 2024-11-22 10:30 | PN ---
[facility] PROGRESS NOTE Date of Service: Nov 22, 2024 Time of Service: 10:22 SUBJECTIVE: 11/20 patient is seen and examined at bedside, case discussed with the RN, no acute events overnight, hemodynamically stable, afebrile, saturating normal on room air. Patient admits dry nonproductive cough, she feels weak. No chest pain, shortness shortness for breath, no nausea, no vomiting. CBC shows a WBC of 50.8, hemoglobin 16.1, hematocrit 48.6. The patient recently discharged from the hospital on Medrol Dosepak. We will continue broad-spectrum antibiotics for additional 24 hours, pulmonary consultation requested, follow input recommendation, anticipate discharge home in the next 24 hours. 11/21 patient is seen and examined at bedside, case discussed with the RN, no acute events overnight, patient alert oriented x3 comfortable in bed, results of Doppler negative for DVT, discussed with the patient. Patient already evaluated by clipper automatic, echocardiogram pending to evaluate ejection fraction. He for unremarkable patient can follow with her clipper automatic when returning back home. In the meantime continue current medical management, continue broad-spectrum IV antibiotics, follow a.m. labs. If blood pressure stable, anticipate discharge home in the next 24 hours. We will decrease the dose of furosemide from 40 mg p.o. b.i.d. to 20 mg p.o. daily. Discussed with the patient, in agreement. 11/22 patient is seen and examined at bedside, discussed with the RN, no acute events overnight. Patient was recently discharged 11/18/24 after to be treated for suspected pneumoniae. Patient readmitted 24 hours later on 11/19/2024 with chief complaint of generalized weakness and sensation of chest tightness.ECG result revealed sinus tach 102 low voltage precordial leads. Cardiology consultation requested, pending repeat echocardiogram during this admission. Patient with a recent echo 11/14/2024 with normal LVEF. PLAN IS FOR THE PATIENT TO BE DISCHARGED HOME IN THE NEXT 24 HOURS IF ECHOCARDIOGRAM IS UNREMARKABLE. ALL THE PRESCRIPTIONS WERE GIVEN TO THE PATIENT DURING LAST ADMISSION. IN TERMS OF BLOOD PRESSURE MEDICATION, WE WILL DISCONTINUE METOPROLOL TARTRATE. ADVISED THE PATIENT TO TAKE ONLY LISINOPRIL 2.5 MG P.O. DAILY. DURING THE LAST ADMISSION LASIX 40 MG P.O. B.I.D. WAS GIVEN, HOWEVER WAS ADVISED TO TAKE ONLY 20 MG P.O. DAILY. PRESCRIPTION PROVIDED. PATIENT ALERT ORIENTED X3, AGREED AND UNDERSTOOD THE INFORMATION PROVIDED. REVIEW OF SYSTEMS CONSTITUTIONAL: Denies fevers, chills, or night sweats. No unintentional weight loss reported. NEUROLOGICAL: Denies headache, amaurosis fugax, motor weakness, sensory deficit, vertigo/spinning sensation, gait abnormalities, or tremors. ENT: No hearing loss, otalgia, otorrhea, rhinitis, rhinorrhea, hoarseness, or sore throat. CARDIOVASCULAR: Denies any exertional angina, dyspnea on exertion, orthopnea, paroxysmal nocturnal dyspnea, palpitations, life-threatening arrhythmias, claudication. PULMONARY: Denies any shortness of breath, cough, phlegm/sputum, hemoptysis, pleuritic chest pain. SLEEP: Denies morning headaches, daytime somnolence or napping. Denies dif ficulty falling asleep, staying asleep, waking from sleep. Denies knowledge of snoring. GASTROINTESTINAL: Denies any type of dysphagia to either liquids or solids. Denies nausea, vomiting, pyrosis, early satiety, abdominal pain, diarrhea, constipation, or changes in stool consistency or caliber. Denies coffee-ground emesis, hematemesis, hematochezia, or melanotic stools. GENITOURINARY: Denies frequency, urgency, nocturia, hematuria or incontinence (Storage/Irritative symptoms.) Low urinary stream, straining to void, urinary intermittency or hesitancy, splitting of the voiding stream, terminal dribbling. ENDOCRINOLOGIC: Denies polyuria, polydipsia, polyphagia or heat/cold i ntolerances. HEMATOLOGIC: Denies thrombophilia/previous clots, or coagulopathy/bleeding disorders. ONCOLOGIC: Denies personal history of malignancy. DERMATOLOGIC: Denies rashes or pruritus. PSYCHIATRIC: Denies any suicidal or homicidal ideation. Denies hallucinations. PHYSICAL EXAM GENERAL APPEARANCE: The patient is awake, alert, and oriented, in no acute cardiopulmonary distress. NEUROLOGICAL: Cranial nerves II-XII grossly intact. Motor is 5/5 in bilateral upper and lower extremities proximal to distal. No sensory deficits. HEENT: Face is symmetric. Pupils are equal and reactive. Extraocular movements are intact. NECK: Supple. No JVD. No thyromegaly. No submental, submandibular, pre- /postauricular, occipital or supraclavicular lymphadenopathy. CHEST: Normal chest expansion. No Telemetry. LUNGS: Absence of any rales, rhonchi or any wheezing. CARDIOVASCULAR: Regular. S1 and S2 normal. No appreciable rubs, murmurs or gallops. ABDOMEN: Soft, nontender, and nondistended. There is no rebound, voluntary guarding, or rigidity. : Deferred. No Guerrero. EXTREMITIES: Non-edematous and not cyanotic. No clubbing. Good capillary refill. SKIN: No skin breakdown. Vital Signs (last 8hr) Date Time Temp Pulse Resp B/P (MAP) Pulse Ox O2 Delivery O2 Flow Rate FiO2 11/22/24 10:20 93 20 N/A Room Air 21 11/22/24 10:19 93 20 11/22/24 08:11 97.9 98 18 119/82 93 Room Air 11/22/24 06:22 90 20 N/A Room Air 21 11/22/24 06:22 92 20 11/22/24 04:00 85 18 133/70 95 Room Air 129/78 174/103 LABS: Laboratory: Test 11/22/24 07:22 11/22/24 05:44 11/22/24 03:36 11/21/24 16:01 Range/Units Blood Gas Specimen Type Arterial Arterial Blood pH 7.437 7.350-7.450 Arterial Blood Partial Pressure CO2 43 32-45 mmHg Arterial Blood Partial Pressure O2 79.8 L 83.0-108.0 mmHg Arterial Blood HCO3 28.4 H 21.0-28.0 mmol/L Arterial Blood Oxygen Saturation 96.1 94.0-98.0 % Arterial Blood Base Excess 3.7 H -2.0-3.0 mmol/L Blood Gas Temperature 37.0 35.5-37.0 CELSIUS Blood Gas Vent Mode RA ROOM AIR FiO2 21.0 % Blood Gas Specimen Comment RR Whole Blood Glucose 188 H 70-110 MG/DL White Blood Count 10.3 4.8-10.8 K/uL Red Blood Count 4.82 4.00-5.50 MIL/uL Hemoglobin 15.4 12.0-16.0 g/dL Hematocrit 46.7 36-48 % Mean Corpuscular Volume 96.9 79-99 fL Mean Corpuscular Hemoglobin 32.0 27.0-33.0 pg Mean Corpuscular Hemoglobin Concent 33.0 32.0-36.0 g/dL Red Cell Distribution Width 13.0 11.0-15.5 % Platelet Count 294 130-400 K/uL Mean Platelet Volume 9.9 7.5-10.5 fL Nucleated Red Blood Cells 0.0 0.0-0.19 % Sodium Level 138 136-145 mmol/L Potassium Level 4.0 3.5-5.1 mmol/L Chloride Level 101 101-111 mmol/L Carbon Dioxide Level 29 21-32 mmol/L Blood Urea Nitrogen 17 7-18 mg/dL Creatinine 0.8 0.5-1.0 mg/dL Glomerular Filtration Rate Calc 88 >90 mL/min Random Glucose 191 H 70-105 mg/dL Total Calcium 8.5 8.5-10.1 mg/dL Magnesium Level 1.70 L 1.80-2.40 mg/dL Total Bilirubin 0.6 0.2-1.0 mg/dL Aspartate Amino Transf (AST/SGOT) 15 10-37 U/L Alanine Aminotransferase (ALT/SGPT) 29 12-78 U/L Alkaline Phosphatase 77 50-136 U/L Total Protein 6.3 6.0-8.3 g/dL Albumin 3.0 L 3.5-5.0 g/dL Bedside Glucose Comment Notified Nurse Test 11/20/24 11:23 Range/Units Troponin I High Sensitivity 5 4-50 ng/L Current Medications Medications (Trade) Dose Ordered Sig/Brodie Route PRN Reason Start Time Stop Time Status Last Admin Dose Admin Acetaminophen (TYLenol 325MG TAB) 650 mg Q4H PRN PO MILD PAIN (1-3) 11/19/24 23:30 12/19/24 23:29 11/21/24 01:38 650 MG Acetaminophen (TYLenol 325MG TAB) 650 mg Q6H PRN PO TEMPERATURE GREATER THAN 101.5 11/19/24 23:30 12/19/24 23:29 Acetaminophen/ Hydrocodone Bitart (NORco 5/325MG) 1 tab HSPRN PRN PO PAIN 6-10 11/20/24 11:00 11/25/24 10:59 11/21/24 18:21 1 TAB Albuterol (DUOneb) 1 udvial [id number] IH 11/20/24 02:00 12/20/24 01:59 11/22/24 10:18 1 UDVIAL Aspirin (Aspirin 325mg Tab) 325 mg ONCE PO 11/19/24 20:00 11/19/24 23:59 DC 11/19/24 20:16 325 MG Aspirin (Aspirin 81mg Ec Tab) 81 mg DAILY PO 11/20/24 09:00 12/20/24 08:59 11/22/24 08:48 81 MG Atorvastatin Calcium (LIPItor 40MG) 40 mg HS PO 11/20/24 21:00 12/20/24 20:59 11/21/24 20:22 40 MG Bacitracin (Bacitracin 28.4gm) BID TP 11/20/24 21:00 12/20/24 20:59 11/22/24 08:49 1 GM Dextrose (D50w) 50 ml AD PRN IV HYPOGLYCEMIA PROTOCOL 11/19/24 23:30 12/19/24 23:29 Dextrose (D50w) 50 ml AD PRN IV HYPOGLYCEMIA PROTOCOL 11/20/24 11:00 11/20/24 10:54 DC Ergocalciferol (Drisdol) 50,000 unit QWEEK PO 11/27/24 09:00 12/27/24 08:59 Famotidine (Pepcid 20mg Tab) 20 mg DAILY PO 11/20/24 09:00 11/22/24 09:17 DC 11/22/24 08:48 20 MG Famotidine (Pepcid 20mg Tab) 20 mg DAILY PRN PO EDEMA 11/23/24 09:00 11/22/24 09:18 DC Fluticasone Propionate (FLOnase 50 mcg/ spray 16g bottle) 1 SPRAY DAILY NS 11/21/24 09:00 12/21/24 08:59 11/22/24 08:49 1 SPRAYS Furosemide (LASix 20MG TAB) 20 mg DAILY PO 11/22/24 09:00 12/20/24 20:59 11/22/24 08:48 20 MG Furosemide (LASix 40MG TAB) 40 mg BID PO 11/20/24 21:00 11/21/24 12:28 DC 11/21/24 09:04 40 MG Gabapentin (NEURontin 100 mg CAP) 100 mg TID PO 11/20/24 14:00 12/20/24 13:59 11/22/24 08:47 100 MG Glucagon (Glucagon 1mg Kit) 1 mg AD PRN IM HYPOGLYCEMIA PROTOCOL 11/19/24 23:30 12/19/24 23:29 Glucagon (Glucagon 1mg Kit) 1 mg AD PRN IM HYPOGLYCEMIA PROTOCOL 11/20/24 11:00 11/20/24 10:54 DC Guaifenesin (MUCinex 600 MG TABLET.ER) 1,200 mg BID PO 11/20/24 21:00 12/20/24 20:59 11/22/24 08:48 1,200 MG Guaifenesin/ Dextromethorphan (RobiTUSSin DM 200/20MG 10ML) 10 ml Q4H PRN PO COUGH 11/19/24 23:30 12/19/24 23:29 Heparin Sodium (Porcine) (HEParin 5,000 UNIT VIAL) 5,000 unit Q12H SQ 11/19/24 23:30 12/19/24 23:29 11/21/24 22:44 5,000 UNIT Hydrocortisone Acetate (anuSOL-HC 25MG SUPP) 1 supp DAILY PRN VT HEMORRHOIDS 11/20/24 11:00 12/20/24 10:59 Insulin Glargine (LANtus 100 UNITS/ML 10 ML VIAL) 40 units HS SQ 11/20/24 21:00 12/20/24 20:59 11/21/24 20:48 40 UNITS Insulin Human Regular (humuLIN R 100 UNIT/ML 3ML) INSULIN SLIDING SCAL... ACHS SQ 11/20/24 07:30 12/20/24 07:29 11/22/24 06:42 2 UNIT Insulin Human Regular (humuLIN R 100 UNIT/ML 3ML) INSULIN SLIDING SCAL... ACHS SQ 11/20/24 11:30 11/20/24 10:55 DC Levofloxacin/ Dextrose 150 ml @ 100 mls/hr Q48H IV 11/21/24 22:00 12/01/24 21:59 11/21/24 20:57 100 MLS/HR Lisinopril (Prinivil 2.5mg) 2.5 mg DAILY PO 11/21/24 09:00 12/21/24 08:59 11/22/24 09:44 2.5 MG Loratadine (LORATAdine 10 mg) 10 mg DAILY PO 11/21/24 09:00 12/21/24 08:59 11/22/24 08:47 10 MG Magnesium Sulfate 50 ml @ 0 mls/hr PROTOCOL PRN IV OTHER [SEE ORDER COMMENTS] 11/19/24 23:30 12/19/24 23:29 11/22/24 06:31 25 MLS/HR Metoprolol Tartrate (loprESSOR) 12.5 mg BID PO 11/20/24 21:00 11/22/24 09:17 DC 11/20/24 20:14 12.5 MG Miscellaneous Medication (Albuterol Sulfate (Ventolin Hfa)) 2 puff [id number] PRN IH wheezing 11/20/24 11:00 11/20/24 10:58 DC Miscellaneous Medication (Ipratropium/ Albuterol Sulfate (Combivent Respimat Inhal [place])) 2 puff TID PRN IH SHORTNESS OF BREATH/WHEEZING 11/20/24 11:00 11/20/24 10:58 DC Montelukast Sodium (SinguLAIR) 10 mg DAILY PO 11/21/24 09:00 12/21/24 08:59 11/22/24 08:47 10 MG Nitroglycerin (Nitrostat) 0.4 mg PROTOCOL PRN SL CHEST PAIN 11/19/24 23:30 12/19/24 23:29 Ondansetron HCl (zoFRAN 4MG INJ) 4 mg Q6H PRN IV NAUSEA/VOMITING 11/19/24 23:30 12/19/24 23:29 Potassium Chloride 100 ml @ 100 mls/hr AD PRN IV POTASSIUM PROTOCOL 11/19/24 23:30 12/19/24 23:29 Potassium Chloride (K-Dur/Klor-Con 20meq) 20 meq AD PRN PO POTASSIUM PROTOCOL 11/19/24 23:30 12/19/24 23:29 Potassium Chloride (KCl 10% Elixir 20meq/15ml) 20 meq AD PRN PO POTASSIUM PROTOCOL 11/19/24 23:30 12/19/24 23:29 Sodium Chloride 500 ml @ 0 mls/hr Q0M IV 11/21/24 01:30 11/21/24 12:09 DC 11/21/24 01:29 500 MLS/HR Sodium Chloride 1,000 ml @ 0 mls/hr ONCE IV 11/19/24 20:30 11/20/24 11:05 DC 11/19/24 21:33 1,000 MLS/HR DIAGNOSTICS / RADIOLOGY: [ ] ASSESSMENT: Acute bacterial bronchitis POA Acute respiratory failure POA Chest pain r/o ACS POA Transient hypotension -improved POA Lactic acidosis POA Acute Kidney injury POA Hypomagnesemia POA Uncontrolled diabetes POA Hypertension POA Hyperlipidemia POA Chronic obstructive pulmonary disease POA Morbidly obese POA Obstructive sleep apnea no CPAP machine POA Dilated pulmonary trunk concerning for pulmonary artery hypertension per CT on 11/14/2024 POA PLAN: patient is seen and examined at bedside, discussed with the RN, no acute events overnight. Patient was recently discharged 11/18/24 after to be treated for suspected pneumoniae. Patient readmitted 24 hours later on 11/19/2024 with chief complaint of generalized weakness and sensation of chest tightness.ECG result revealed sinus tach 102 low voltage precordial leads. Cardiology consultation requested, pending repeat echocardiogram during this admission. Patient with a recent echo 11/14/2024 with normal LVEF. PLAN IS FOR THE PATIENT TO BE DISCHARGED HOME IN THE NEXT 24 HOURS IF ECHOCARDIOGRAM IS UNREMARKABLE. ALL THE PRESCRIPTIONS WERE GIVEN TO THE PATIENT DURING LAST ADMISSION. IN TERMS OF BLOOD PRESSURE MEDICATION, WE WILL DISCONTINUE METOPROLOL TARTRATE. ADVISED THE PATIENT TO TAKE ONLY LISINOPRIL 2.5 MG P.O. DAILY. DURING THE LAST ADMISSION LASIX 40 MG P.O. B.I.D. WAS GIVEN, HOWEVER WAS ADVISED TO TAKE ONLY 20 MG P.O. DAILY. PRESCRIPTION PROVIDED. MEDICATION RECONCILIATION DONE AGAIN DURING THIS ADMISSION IN ANTICIPATION FOR DISCHARGE HOME IN THE NEXT 24 HOURS PATIENT ALERT ORIENTED X3, AGREED AND UNDERSTOOD THE INFORMATION PROVIDED. NEURO: Minimize central acting medications as possible. Fall Precautions. Well lighted room through the day and minimize interruptions through the night to prevent acute delirium. PULMONARY: Supplemental 02 as needed BiPAP as necessary, for respiratory distress Titrate Fio2 to keep Spo2 > or = 90% DuoNebs and CPT as needed IS hourly while awake for pulmonary hygiene prn Out of bed to chair as tolerated Maintain aspiration precautions at all times CARDIOVASCULAR: Follow hemodynamics. Vital signs per facility protocol GI & NUTRITION: Continue nutritional support Aspirations precautions Prokinetic agents and laxatives as needed KIDNEYS & ELECTROLYTES: Strict monitoring of intake and output Daily weights Avoid nephrotoxic agents Monitor electrolytes and replace as needed Goal urine output of 30mL/hr or 0.5mL/kg/hr Medications to be dosed according to renal function. Avoid contrast if possible ENDOCRINE: Maintain blood glucose between 100-180 at all times. Insulin sliding scale for blood glucose management Hypoglycemia and hyperglycemia protocol in place INFECTIOUS DISEASE: Trend temperature, WBC and procalcitonin level Follow cultures, deescalate antibiotics as soon as possible. Panculture if new onset fever HEMATOLOGY & COAGULATION: Monitor H&H. Keep Hgb > 7 Transfuse 1 unit of PRBC for Hgb < 7 Transfuse 1 pack of platelets of platelets < 20, 000 Watch for any signs and symptoms of bleeding SKIN: Pressure ulcer prevention per facility protocol Specialty mattress as needed ORTHO/REHAB Continue PT/OT PRN: MEDICATIONS Tylenol 650 mg po every 4 hrs for fever zofran 4 mg IV every 6 hrs for n/v Hydralazine 5 mg IV every 4 hrs systolic pressure > 160 bowel regiment: lactulose 20 gm PO BID PRN constipation Supportive measures: Continue GI and DVT prophylaxis All questions answered time spent: > 35 min DIANA SHOOK MD Nov 22, 2024 10:30
[2024-11-22] MEDS ORDERED: BENZONATATE 100 MG CAPSULE PO PRN (11:30)
[2024-11-22] MEDS ORDERED: ALBUTEROL 0.083% 2.5 MG/3 ML INH IH PRN (11:30)
--- NOTE | 2024-11-22 12:27 | PN ---
[facility] PROGRESS NOTE Date Patient Seen: Nov 22, 2024 Time of Visit: 12:16 Supervising Physician: Dr. Rommel Neal Primary Care Physician: [ ] Outpatient Specialists: [ ] Inpatient Consults: [ ] PROBLEM LIST: Acute bronchitis Obstructive sleep apnea Morbid obesity, BMI 59.6 Recommendations: We will require 6 minute ambulation test DENIS undiagnosed and untreated, CPAP initiated q.h.s. We will require GLP 1 medication therapy Weight loss is critical Patient to follow up, at discharge [facility], Dr. Andre Martinez for further outpatient workup of obstructive sleep apnea INTERVAL HISTORY: 11/22- The patient was assessed by myself resting upon the bed in a high Ceja's position watching television with glasses on. Patient is friendly and conversant, awake, alert, oriented as well as in no acute distress at this time. Discussed patient's chart reviewed with patient's bedside nurse prior to rounding on patient. Patient denies shortness of the breath, chest pain at this time, fevers, chills, nauseousness and constipation VSS. Afebrile Patient does not require supplemental oxygen. Patient at discharge can follow up with [facility], Dr. Andre Martinez for further clinical workup in the outpatient environment. Dispo per primary team, after clinically working patient up for chest pain REVIEW OF SYSTEMS: 12 point ROS reviewed with patient. Pertinent positives mentioned above. Otherwise negative. PHYSICAL EXAM: GENERAL: alert, weak, oriented x 3 HEENT: EOMI, Sclera non icteric, moist mucosa NECK: Supple, no JVD, trachea midline LUNGS: Clear breath sounds bilaterally, minimally diminished in the bases, no wheezes or stridor present.. HEART: Regular rate and rhythm. Normal S1 and S2, without murmurs ABD: Abdomen soft, nontender. Bowel sounds present EXT: No clubbing cyanosis or edema NEURO: Alert and oriented to person, follows commands Vital Signs (last 8hr) Date Time Temp Pulse Resp B/P (MAP) Pulse Ox O2 Delivery O2 Flow Rate FiO2 11/22/24 11:41 97.9 89 17 120/68 91 Room Air 11/22/24 10:20 93 20 N/A Room Air 21 11/22/24 10:19 93 20 11/22/24 08:11 97.9 98 18 119/82 93 Room Air 11/22/24 06:22 90 20 N/A Room Air 21 11/22/24 06:22 92 20 LABS: Hematology Labs: Test 11/22/24 03:36 Range/Units White Blood Count 10.3 4.8-10.8 K/uL Red Blood Count 4.82 4.00-5.50 MIL/uL Hemoglobin 15.4 12.0-16.0 g/dL Hematocrit 46.7 36-48 % Mean Corpuscular Volume 96.9 79-99 fL Mean Corpuscular Hemoglobin 32.0 27.0-33.0 pg Mean Corpuscular Hemoglobin Concent 33.0 32.0-36.0 g/dL Red Cell Distribution Width 13.0 11.0-15.5 % Platelet Count 294 130-400 K/uL Mean Platelet Volume 9.9 7.5-10.5 fL Nucleated Red Blood Cells 0.0 0.0-0.19 % Chemistry Labs: Test 11/22/24 11:15 11/22/24 03:36 11/21/24 16:01 Range/Units Whole Blood Glucose 230 H 70-110 MG/DL Sodium Level 138 136-145 mmol/L Potassium Level 4.0 3.5-5.1 mmol/L Chloride Level 101 101-111 mmol/L Carbon Dioxide Level 29 21-32 mmol/L Blood Urea Nitrogen 17 7-18 mg/dL Creatinine 0.8 0.5-1.0 mg/dL Glomerular Filtration Rate Calc 88 >90 mL/min Random Glucose 191 H 70-105 mg/dL Total Calcium 8.5 8.5-10.1 mg/dL Magnesium Level 1.70 L 1.80-2.40 mg/dL Total Bilirubin 0.6 0.2-1.0 mg/dL Aspartate Amino Transf (AST/SGOT) 15 10-37 U/L Alanine Aminotransferase (ALT/SGPT) 29 12-78 U/L Alkaline Phosphatase 77 50-136 U/L Total Protein 6.3 6.0-8.3 g/dL Albumin 3.0 L 3.5-5.0 g/dL Bedside Glucose Comment Notified Nurse DIAGNOSTICS / RADIOLOGY RESULTS:REASON: Assess patient's condition after initial treatment ORDERING PHYSICIAN: DAX PEREZ NP PROCEDURE: CXR1VW - CHEST 1VW EXAM: CR Chest, 1 View. CLINICAL HISTORY: Assess patient's condition after initial treatment COMPARISON: 11/19. FINDINGS: LUNGS: Mild pulmonary vascular congestion. PLEURAL SPACES: No evidence of pleural effusion or pneumothorax. MEDIASTINUM: Cardiomegaly. BONES: No aggressive appearing osseous lesion seen. IMPRESSION: 1. Mild pulmonary vascular congestion. 2. Cardiomegaly. /[place] DICTATED BY: ZAY GARCIA MD DATE: 11/22/24806 ELECTRONICALLY SIGNED BY: ZAY GARCIA MD DATE: 11/22/24806 DAX PEREZ NP Nov 22, 2024 12:27
[2024-11-22] MEDS: NITROGLYCERIN 1GM OINT 1 INCH/1GM TD ONE (14:19)
--- NOTE | 2024-11-22 18:02 | HMCSR ---
APPROVED REPORT EXAM: LIMITED Two-dimensional and M-mode echocardiogram. INDICATION ICD: reassess EF and assess for pericardial effusion. 2D Dimensions LVED Vol(simp.)83.0 mL LVES Vol(simp.)37.0 mL LVEF(%, simp.)55 % Left Ventricle Left ventricular cavity size is normal. LVEF is 55-60%. Pericardium Trace pericardial effusion. No echo indications of pericardial tamponade. Conclusion Limited exam demonstrating preserved LV function. Some epicardial fat pad no pericardial effusion.
[2024-11-22] MEDS ORDERED: DOXYCYCLINE HYCLATE 100 MG TABLET PO SCH (21:00)
[2024-11-22] MEDS: (Azelastine HCl 1 SPRAY) NASAL SCH (21:00)
[2024-11-23] VITALS (16 sets, daily range): BP systolic 91–143; BP diastolic 52–77; PULSE 84–100; RESP 18–22; TEMP 97.7–98.8; O2SAT 97–98
--- NOTE | 2024-11-23 08:42 | PN ---
[facility] Cardiology Progress Note CARDIOLOGY PROGRESS NOTE NOVEMBER 23, 2024 Problems: 1. Atypical chest pain 2. Orthostatic hypotension 3. Hypomagnesemia 4. COPD 5. Diabetes mellitus type 2 6. Morbid obesity 7. Obstructive sleep apnea 8. Tobacco dependence Blood pressure ranging between 90 and 130 systolic. She was not orthostatic day. Heart rate has been in the 80s. White count 10.3 hemoglobin 15 platelet count 294. [place] [address]. Glucose 200. Creatinine yesterday was 0.8. 2D echo shows ejection fraction of 55-60%. There was a trivial pericardial effusion without tamponade. This was a limited exam to assess for pericardial effusion. The patient continues on aspirin subQ heparin insulin scale furosemide 20 mg daily antibiotics atorvastatin and lisinopril 2.5 mg daily. Is point her orthostatic hypotension has resolved. The patient can be discharged from my standpoint and follow up with her primary physician in [place] when she returns home. GIULIA MENDOZA MD Nov 23, 2024 08:42
[2024-11-23] MEDS ORDERED: ASPIRIN 81 MG EC TAB PO SCH (09:00)
[2024-11-23] MEDS ORDERED: FAMOTIDINE 20MG TAB PO PRN (09:00)
--- NOTE | 2024-11-23 12:29 | PN ---
[facility] PROGRESS NOTE Date Patient Seen: Nov 23, 2024 Time of Visit: 12:29 Supervising Physician: Dr. Kahlil Arrington Primary Care Physician: [ ] Attending physician:[facility] Outpatient Specialists: [ ] Inpatient Consults: ALEXA Pulmonay PROBLEM LIST: Acute bronchitis Obstructive sleep apnea -STOP-BANG Score 4, High Risk DENIS Morbid obesity, BMI 59.6 Recommendations: We will require 6 minute ambulation test Echocardiogram results: -Left ventricle cavity size normal -LVEF 55-60% -Trace pericardial effusion -No echocardiogram evidence pericardial tamponade DENIS undiagnosed and untreated, CPAP initiated q.h.s. We will require GLP 1 medication therapy Weight loss is critical Continue DVT & GI prophylaxis Patient to follow up, at discharge [facility], Dr. Andre Martinez for further outpatient workup of obstructive sleep apnea. INTERVAL HISTORY: 11/22- The patient was assessed by myself resting upon the bed in a high Ceja's position watching television with glasses on. Patient is friendly and conversant, awake, alert, oriented as well as in no acute distress at this time. Discussed patient's chart reviewed with patient's bedside nurse prior to rounding on patient. Patient denies shortness of the breath, chest pain at this time, fevers, chills, nauseousness and constipation VSS. Afebrile Patient does not require supplemental oxygen. Patient at discharge can follow up with [facility], Dr. Andre Martinez for further clinical workup in the outpatient environment. Dispo per primary team, after clinically working patient up for chest pain REVIEW OF SYSTEMS: 12 point ROS reviewed with patient. Pertinent positives mentioned above. Otherwise negative. PHYSICAL EXAM: GENERAL: alert, oriented x 3 HEENT: EOMI, Sclera non icteric, moist mucosa NECK: Supple, no JVD, trachea midline LUNGS: Clear breath sounds bilaterally, minimally diminished in the bases, no wheezes or stridor present.. HEART: Regular rate and rhythm. Normal S1 and S2, without murmurs ABD: Abdomen soft, nontender. Bowel sounds present EXT: No clubbing cyanosis or edema NEURO: Alert and oriented to person, follows commands Vital Signs (last 8hr) Date Time Temp Pulse Resp B/P (MAP) Pulse Ox O2 Delivery O2 Flow Rate FiO2 11/23/24 11:58 97.9 93 18 118/58 98 Room Air 11/23/24 09:46 94 20 11/23/24 07:58 97.7 91 18 117/67 95 Room Air 11/23/24 07:50 Room Air* 0 21 11/23/24 06:49 88 20 N/A Room Air 21 11/23/24 06:40 88 20 LABS: Hematology Labs: Test 11/22/24 03:36 Range/Units White Blood Count 10.3 4.8-10.8 K/uL Red Blood Count 4.82 4.00-5.50 MIL/uL Hemoglobin 15.4 12.0-16.0 g/dL Hematocrit 46.7 36-48 % Mean Corpuscular Volume 96.9 79-99 fL Mean Corpuscular Hemoglobin 32.0 27.0-33.0 pg Mean Corpuscular Hemoglobin Concent 33.0 32.0-36.0 g/dL Red Cell Distribution Width 13.0 11.0-15.5 % Platelet Count 294 130-400 K/uL Mean Platelet Volume 9.9 7.5-10.5 fL Nucleated Red Blood Cells 0.0 0.0-0.19 % Chemistry Labs: Test 11/23/24 11:35 11/23/24 03:27 11/22/24 03:36 11/21/24 16:01 Range/Units Whole Blood Glucose 184 H 70-110 MG/DL Magnesium Level 1.60 L 1.80-2.40 mg/dL Sodium Level 138 136-145 mmol/L Potassium Level 4.0 3.5-5.1 mmol/L Chloride Level 101 101-111 mmol/L Carbon Dioxide Level 29 21-32 mmol/L Blood Urea Nitrogen 17 7-18 mg/dL Creatinine 0.8 0.5-1.0 mg/dL Glomerular Filtration Rate Calc 88 >90 mL/min Random Glucose 191 H 70-105 mg/dL Total Calcium 8.5 8.5-10.1 mg/dL Total Bilirubin 0.6 0.2-1.0 mg/dL Aspartate Amino Transf (AST/SGOT) 15 10-37 U/L Alanine Aminotransferase (ALT/SGPT) 29 12-78 U/L Alkaline Phosphatase 77 50-136 U/L Total Protein 6.3 6.0-8.3 g/dL Albumin 3.0 L 3.5-5.0 g/dL Bedside Glucose Comment Notified Nurse DIAGNOSTICS / RADIOLOGY RESULTS: [ ] DAX PEREZ NP Nov 23, 2024 12:29
[2024-11-23] MEDS ORDERED: PHARMACY COMMUNICATION MISC SCH (13:00)
--- NOTE | 2024-11-23 15:43 | DS ---
Discharge Summary Hospital Course Summary: Patient presented due to chest pain. Due to concerns for ACS cardiology was consulted and provided the following final assessment/ recommendations: Blood pressure ranging between 90 and 130 systolic. She was not orthostatic day. Heart rate has been in the 80s. White count 10.3 hemoglobin 15 platelet count 294. [place] [address]. Glucose 200. Creatinine yesterday was 0.8. 2D echo shows ejection fraction of 55-60%. There was a trivial pericardial effusion without tamponade. This was a limited exam to assess for pericardial effusion. The patient continues on aspirin subQ heparin insulin scale furosemide 20 mg daily antibiotics atorvastatin and lisinopril 2.5 mg daily. Is point her orthostatic hypotension has resolved. The patient can be discharged from my standpoint and follow up with her primary physician in [place] when she returns home. Pulmonary Medicine was also consulted and provided the following recommendations: We will require 6 minute ambulation test DENIS undiagnosed and untreated, CPAP initiated q.h.s. We will require GLP 1 medication therapy Weight loss is critical Patient to follow up, at discharge [facility], Dr. Andre Martinez for further outpatient workup of obstructive sleep apnea Patient was weaned to room air. The patient is currently chest pain-free. The decision was made to discharge the patient to follow up with PCP, Cardiology and Pulmonary Medicine. For chronic pain control she can continue her gabapentin. I recommend she obtain a pain specialist if gabapentin does not control her pain. Assessment/Plan: ASSESSMENT: Acute bacterial bronchitis POA Acute respiratory failure POA Chest pain r/o ACS POA Transient hypotension -improved POA Lactic acidosis POA Acute Kidney injury POA Hypomagnesemia POA Uncontrolled diabetes POA Hypertension POA Hyperlipidemia POA Chronic obstructive pulmonary disease POA Morbidly obese POA Obstructive sleep apnea no CPAP machine POA Dilated pulmonary trunk concerning for pulmonary artery hypertension per CT on 11/14/2024 POA PLAN: patient is seen and examined at bedside, discussed with the RN, no acute events overnight. Patient was recently discharged 11/18/24 after to be treated for suspected pneumoniae. Patient readmitted 24 hours later on 11/19/2024 with chief complaint of generalized weakness and sensation of chest tightness.ECG result revealed sinus tach 102 low voltage precordial leads. Cardiology consultation requested, pending repeat echocardiogram during this admission. Patient with a recent echo 11/14/2024 with normal LVEF. PLAN IS FOR THE PATIENT TO BE DISCHARGED HOME IN THE NEXT 24 HOURS IF ECHOCARDI OGRAM IS UNREMARKABLE. ALL THE PRESCRIPTIONS WERE GIVEN TO THE PATIENT DURING LAST ADMISSION. IN TERMS OF BLOOD PRESSURE MEDICATION, WE WILL DISCONTINUE METOPROLOL TARTRATE. ADVISED THE PATIENT TO TAKE ONLY LISINOPRIL 2.5 MG P.O. DAILY. DURING THE LAST ADMISSION LASIX 40 MG P.O. B.I.D. WAS GIVEN, HOWEVER WAS ADVISED TO TAKE ONLY 20 MG P.O. DAILY. PRESCRIPTION PROVIDED. MEDICATION RECONCILIATION DONE AGAIN DURING THIS ADMISSION IN ANTICIPATION FOR DISCHARGE HOME IN THE NEXT 24 HOURS PATIENT ALERT ORIENTED X3, AGREED AND UNDERSTOOD THE INFORMATION PROVIDED. NEURO: Minimize central acting medications as possible. Fall Precautions. Well lighted room through the day and minimize interruptions through the night to prevent acute delirium. PULMONARY: Supplemental 02 as needed BiPAP as necessary, for respiratory distress Titrate Fio2 to keep Spo2 > or = 90% DuoNebs and CPT as needed IS hourly while awake for pulmonary hygiene prn Out of bed to chair as tolerated Maintain aspiration precautions at all times CARDIOVASCULAR: Follow hemodynamics. Vital signs per facility protocol GI & NUTRITION: Continue nutritional support Aspirations precautions Prokinetic agents and laxatives as needed KIDNEYS & ELECTROLYTES: Strict monitoring of intake and output Daily weights Avoid nephrotoxic agents Monitor electrolytes and replace as needed Goal urine output of 30mL/hr or 0.5mL/kg/hr Medications to be dosed according to renal function. Avoid contrast if possible ENDOCRINE: Maintain blood glucose between 100-180 at all times. Insulin sliding scale for blood glucose management Hypoglycemia and hyperglycemia protocol in place INFECTIOUS DISEASE: Trend temperature, WBC and procalcitonin level Follow cultures, deescalate antibiotics as soon as possible. Panculture if new onset fever HEMATOLOGY & COAGULATION: Monitor H&H. Keep Hgb > 7 Transfuse 1 unit of PRBC for Hgb < 7 Transfuse 1 pack of platelets of platelets < 20, 000 Watch for any signs and symptoms of bleeding SKIN: Pressure ulcer prevention per facility protocol Specialty mattress as needed ORTHO/REHAB Continue PT/OT PRN: MEDICATIONS Tylenol 650 mg po every 4 hrs for fever zofran 4 mg IV every 6 hrs for n/v Hydralazine 5 mg IV every 4 hrs systolic pressure > 160 bowel regiment: lactulose 20 gm PO BID PRN constipation Supportive measures: Continue GI and DVT prophylaxis All questions answered time spent: > 35 min Home Medications: Active Scripts Nitroglycerin (Nitroglycerin) 0.4 Mg Tab.subl, 1 TAB SL AD for chest pain, #25 TAB 1 Refill 1st sign of attack; may repeat every 5 mins; if pain persists after 3 in 15 min, medical attention is recommended Prov:DIANA SHOOK MD 11/22/24 Furosemide (Lasix 20Mg Tab) 20 Mg Tablet, 20 MG PO DAILY for 30 Days, #30 TAB 1 Refill Prov:DIANA SHOOK MD 11/22/24 Insulin Glargine,Hum.rec.anlog (Lantus Solostar) 100 Unit/Ml (3 Ml) Insuln.pen, 40 UNIT SQ HS for 30 Days, #5 ML 1 Refill Prov:DIANA SHOOK MD 11/18/24 Ipratropium/Albuterol Sulfate (Combivent Respimat Inhal [place]) 20 Mcg-100 Mcg/Actuation Aer.w.adap, 2 PUFF IH TID PRN for SHORTNESS OF BREATH/WHEEZING, #4 GM 1 Refill Prov:DIANA SHOOK MD 11/17/24 Methylprednisolone (Medrol) 4 Mg Tab.ds.pk, 1 TAB PO AD for 6 Days, #21 TAB 0 Refills 6 on day 1 then reduce by one tablet daily until gone Prov:DIANA SHOOK MD 11/17/24 Lisinopril (Lisinopril) 2.5 Mg Tablet, 1 TAB PO DAILY for 30 Days, #30 TAB 1 Refill Prov:DIANA SHOOK MD 11/17/24 Doxycycline Monohydrate (Doxycycline Monohydrate) 100 Mg Capsule, 1 CAP PO BID for 7 Days, #14 CAP 0 Refills Prov:DIANA SHOOK MD 11/17/24 Montelukast Sodium (Singulair 10Mg) 10 Mg Tab, 10 MG PO DAILY for 30 Days, #30 TAB 1 Refill Prov:DIANA SHOOK MD 11/17/24 Hydrocortisone Acetate (Anucort-Hc) 25 Mg Supp.rect, 1 SUPP PA DAILY PRN for HEMORRHOIDS for 7 Days, #7 EA 1 Refill Prov:DIANA SHOOK MD 11/17/24 Bacitracin (Bacitracin) 500 Unit/Gram Oint...g., 0 GM TP BID for 14 Days, #1 G 1 Refill Apply topical to affected area Prov:DIANA SHOOK MD 11/17/24 Atorvastatin Calcium (LIPITOR) 40 Mg Tablet, 40 MG PO HS for 30 Days, #30 TAB 1 Refill Prov:DIANA SHOOK MD 11/17/24 Aspirin (ASPIRIN 81 MG ECTAB) 81 Mg Ectab, 81 MG PO DAILY for 30 Days, #30 TAB.EC 1 Refill Prov:DIANA SHOOK MD 11/17/24 Reported Medications Fluticasone Propionate (Flonase Nasal [place]) 50 Mcg/Actuation [place], 2 SPRAY NS DAILY, #16 GM 0 Refills 11/14/24 Hydroxyzine HCl (Atarax) 50 Mg Tab, 1 CAP PO TID for anxiety for 30 Days, #90 CAP 0 Refills 11/14/24 Famotidine (Famotidine) 40 Mg Tablet, 1 TAB PO DAILY for 30 Days, #30 TAB 0 Refills 11/14/24 Albuterol Sulfate (Albuterol Sulfate) 2.5 Mg/3 Ml (0.083 %) Vial.neb, 1 VIAL NEB Q4HPRN PRN for wheezing, #150 ML 0 Refills 11/14/24 Zolpidem Tartrate (Zolpidem Tartrate) 5 Mg Tablet, 1 TAB PO HSPRN PRN for sleep for 30 Days, #30 TAB 0 Refills 11/14/24 Ergocalciferol (Vitamin D2) (Ergocalciferol) 200 Mcg/Ml (8000 Unit/Ml) Drops, 1.25 MG PO QWEEK, DROP 11/14/24 Terbinafine HCl (Terbinafine HCl) 250 Mg Tablet, 1 TAB PO DAILY for 30 Days, #30 TAB 0 Refills 11/14/24 Umeclidinium Brm/Vilanterol Tr (Anoro Ellipta 62.5-25 Mcg INH) 62.5 Mcg-25 Mcg/Actuation Disk.w.dev, 1 PUFF IH DAILY for 30 Days, #1 EACH 0 Refills 11/14/24 Insulin Lispro (Humalog) 100 Unit/Ml Insuln.pen, 0 SQ TID PRN for SLIDING SCALE COVERAGE, SYRINGE 11/14/24 Gabapentin (Gabapentin) 100 Mg Capsule, 1 CAP PO TID for 30 Days, #90 CAP 0 Refills 11/14/24 Atorvastatin Calcium (LIPITOR) 40 Mg Tablet, 1 TAB PO DAILY for 30 Days, #30 TAB 0 Refills 11/14/24 Metformin HCl (Metformin HCl ER) 500 Mg Tab.er.24h, 2 TAB PO DAILY for 30 Days, #120 TAB 0 Refills 11/14/24 Loratadine (Loratadine) 10 Mg Tablet, 1 TAB PO DAILY for allergy symptoms for 30 Days, #30 TAB 0 Refills 11/14/24 Albuterol Sulfate (Ventolin Hfa) 90 Mcg Hfa.aer.ad, 2 PUFF IH Q7DOURW PRN for wheezing for 30 Days, #18 GM 0 Refills 11/14/24 Hydrocodone/Acetaminophen (Hydrocodon-Acetaminophen 5-325) 5 Mg-325 Mg Tablet, 0.5 EACH PO HSPRN PRN for PAIN LEVEL 6 TO 10, TAB 11/14/24 Guaifenesin (Mucinex) 600 Mg Tablet.er, 1200 MG PO BID, TAB 11/14/24 Benzonatate (Benzonatate) 200 Mg Capsule, 2 CAP PO TIDP PRN for cough for 7 Days, #21 CAP 0 Refills 11/14/24 Azelastine HCl (Azelastine HCl) 137 Mcg (0.1 %) [place].pump, 1 SPRAY NS BID for 30 Days, #30 ML 0 Refills 11/14/24 Celecoxib (Celecoxib) 100 Mg Capsule, 1 CAP PO BID for 10 Days, #20 CAP 0 Refills 11/14/24 Discontinued Reported Medications Insulin Glargine,Hum.rec.anlog (Lantus Solostar) 100 Unit/Ml (3 Ml) Insuln.pen, 20 UNIT SQ HS for 30 Days, ML 0 Refills 11/14/24 Lisinopril (Lisinopril) 10 Mg Tablet, 1 TAB PO DAILY for 30 Days, #30 TAB 0 Refills 11/14/24 Spironolactone (Aldactone) 25 Mg Tablet, 1 TAB PO DAILY for 30 Days, #30 TAB 0 Refills 11/14/24 Prednisone (Prednisone) 20 Mg Tablet, 40 MG PO DAILY, TAB 11/14/24 Discontinued Scripts Furosemide (Furosemide) 40 Mg Tablet, 1 TAB PO BID for 30 Days, #60 TAB 1 Refill Prov:DIANA SHOOK MD 11/17/24 Metoprolol Tartrate (Lopressor) 25 Mg Tab, 12.5 MG PO BID for 30 Days, #30 TAB 1 Refill Prov:DIANA SHOOK MD 11/17/24 ANDREA CARDOZO IV, MD Nov 23, 2024 15:43
[2024-11-27] MEDS ORDERED: ERGOCALCIFEROL (VITAMIN D2) 50,000 UNIT CAPSULE PO SCH (09:00)
== END 2024-11-23 19:58 | disposition home or self-care (01) | DRG 469 ==
LOC: EDH 19:30 → EDHIP 23:08 → 4AH 11-20 00:41
PROVIDERS: ADMIT Internal Medicine; ATTEND Internal Medicine
DX: N17.9 Acute kidney failure, unspecified (principal); J96.00 Acute respiratory failure, unspecified whether with hypoxia or hypercapnia; E87.20 Acidosis, unspecified; I27.21 Secondary pulmonary arterial hypertension; J44.0 Chronic obstructive pulmonary disease with (acute) lower respiratory infection; Z68.44 Body mass index [BMI] 60.0-69.9, adult; E83.42 Hypomagnesemia; J20.8 Acute bronchitis due to other specified organisms; E66.01 Morbid (severe) obesity due to excess calories; R07.89 Other chest pain; G47.33 Obstructive sleep apnea (adult) (pediatric); E11.22 Type 2 diabetes mellitus with diabetic chronic kidney disease; E78.00 Pure hypercholesterolemia, unspecified; I10 Essential (primary) hypertension; F41.9 Anxiety disorder, unspecified; F17.210 Nicotine dependence, cigarettes, uncomplicated; G89.29 Other chronic pain; I95.1 Orthostatic hypotension; Z63.4 Disappearance and death of family member; Z79.82 Long term (current) use of aspirin; Z79.899 Other long term (current) drug therapy
CPT/HCPCS: 36415; 36600; 71045; 80048; 80053; 81003; 82803; 82948; 83605; 83735; 83880; 84484; 85025; 85027; 87040; 93005; 93308; 93970; 94640; 94664; 96374; 99285; G0378; J1644; J1815; J1956; J3475; J7030